=== PATIENT | male | born 1955 | race Caucasian/White ===

== ENCOUNTER 2024-05-23 13:23 | Inpatient (IN) | payer MEDICARE, SELFPAY ==
[2024-05-23] VITALS (9 sets, daily range): BP systolic 122–144; BP diastolic 48–83; PULSE 55–61; RESP 13–19; TEMP 36.6–36.8; O2SAT 92–98; BMI 41.8
--- NOTE | 2024-05-23 13:42 | XR_ITS ---
Examination: CT brain head without contrast. 2-D sagittal coronal reconstructions Date and time of exam:May 23, 2024 1429 hours INDICATIONS: Sudden onset generalized body weakness today and beginning 3 days ago CTDI: vol (mGy):55.3 DLP: (mGycm):1186 Technique: Multiple CT axial sections of the brain have been obtained, 5 mm slice thickness. Contrast has not been administered. 2-D sagittal, coronal reconstructions have been obtained Low dose protocols were performed. One or more of the following dose reduction techniques were used; automated exposure control, adjustment of the mA and/or KV according to patient size, use of iterative reconstruction technique. Findings: No significant ventricular enlargement. 6 mm age-indeterminate infarct in the left basal ganglia, axial image 26 Intra-axial or extra-axial hemorrhage density is not seen. No mass effect or midline shift Basal cisterns are not remarkable. Fourth ventricle is midline. Cranial vault intact. Impression: Negative for acute hemorrhage, mass effect or midline shift 6 mm age-indeterminate infarct in the left basal ganglia, axial image 26 Consider MRI brain without contrast follow-up, stroke protocol
--- NOTE | 2024-05-23 13:42 | EKG_ITS ---
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
--- NOTE | 2024-05-23 13:42 | PD.EDRME ---
Rapid Medical Screening Exam RME Arrival date/time: 05/23/24 13:23 68-year-old male presents the emergency department with complaint of weakness ongoing since Thursday Chief Complaint: Weakness Vital signs: Vital Signs Temperature 98 F 05/23/24 13:38 Pulse Rate 58 L 05/23/24 13:38 Respiratory Rate 18 05/23/24 13:38 Blood Pressure 144/77 H 05/23/24 13:38 Pulse Oximetry (%) 96 05/23/24 13:38 Oxygen Delivery Method Room Air 05/23/24 13:38
[2024-05-23 14:22] LABS: Basophils # (Auto) 0.1 Thou/mm3 (0.0-0.2); Basophils % (Auto) 1 % (0-2.5); Eosinophils # (Auto) 0.5 Thou/mm3 (0.0-0.5); Eosinophils % (Auto) 5 % (0-10); Hemoglobin 13.9 g/dL (13.5-16.0); Immature Granulocytes % (Auto) 0 % (0-0); Immature Granulocytes Auto 0.04 Thou/mm3 (0.00-0.00); Lymphocytes % (Auto) 10 % (10-50); Mean Corpuscular HGB Conc 34.8 g/dl (31.0-37.0); Mean Corpuscular Hemoglobin 29.2 pg (25.0-35.0); Mean Corpuscular Volume 84 fL (80-100); Monocytes # (Auto) 0.8 Thou/mm3 (0.0-0.8); Monocytes % (Auto) 9 % (0-12); Neutrophils # (Auto) 7.4 Thou/mm3 (1.8-7.7); Neutrophils % (Auto) 75 % (37-80); Nucleated Red Blood Cell % 0 /100 WBC (0); Platelet Count 262 Thou/mm3 (140-440); RDW Standard Deviation 42.5 fL (35.1-43.9); Red Blood Count 4.76 Miln/mm3 (4.50-5.90); White Blood Count 9.8 Thou/mm3 (3.8-10.6)
[2024-05-23 14:36] LABS: B-Type Natriuretic Peptide 86 pg/mL (0-100)
[2024-05-23 14:39] LABS: INR 1.1 (0.9-1.3); Partial Thromboplastin Time 26.6 Seconds (22.0-36.0); Prothrombin Time 11.5 Seconds (9.0-12.2)
[2024-05-23 14:46] LABS: Alanine Aminotransferase 31 U/L (10-49); Albumin, Serum 4.2 gm/dL (3.4-4.8); Albumin/Globulin Ratio 1.9 (1.2-2.2); Alkaline Phosphatase 75 U/L (46-116); Anion Gap 7 (7-16); Aspartate Amino Transferase 37 U/L (0-34); BUN/Creatinine Ratio 24 Ratio (12-20); Blood Urea Nitrogen 19 mg/dL (9-23); Calcium 10.3 mg/dL (8.3-10.6); Calcium (Corrected) 10.3 mg/dL (8.5-10.1); Carbon Dioxide 36.2 mMol/L (20.0-31.0); Chloride 101 mMol/L (98-107); Creatinine (Component) 0.8 mg/dL (0.6-1.3); Estimated Creatinine Clearance 110.5 mL/min (>60); Globulin 2.2 gm/dL (2.3-3.5); Glucose 88 mg/dL (74-106); Magnesium 1.8 mg/dL (1.6-2.6); Osmolality,Calculated 288 (275-295); Sodium 144 mMol/L (136-145); Total Protein 6.4 gm/dL (5.7-8.2); Troponin I 0.026 ng/mL (0.0-0.045); eGFR > 60 See Note
[2024-05-23 14:47] LABS: Potassium 2.3 mMol/L (3.4-5.1)
[2024-05-23 15:33] LABS: Collection Type, Urine Clean Catch; Squamous Epithelial Cell,Urine 0 /hpf (0-5)
[2024-05-23 15:45] LABS: Bilirubin,Urine Negative (Negative); Blood,Urine Negative (Negative); Clarity,Urine Clear (Clear/Hazy); Color,Urine Lt-Yellow (Lt Yel-Yel); Glucose, Urine Negative (Negative); Hyaline Casts,Urine < 1 /hpf (0-1); Ketones,Urine Negative (Negative); Leukocyte Esterase,Urine Positive (Negative); Nitrite,Urine Negative (Negative); Protein,Urine Trace (Neg - Trace); RBC,Urine 3 /hpf (0-3); Specific Gravity,Urine 1.022 (1.001-1.035); Urobilinogen,Urine Negative mg/dL (0.0-1.0); WBC,Urine 18 /hpf (0-5)
[2024-05-23 15:52] LABS: Amphetamine/Methamp Scrn,U Negative (Negative); Barbiturate Screen,Urine Negative (Negative); Benzodiazepines Screen,Urine Negative (Negative); Benzoylecgonine Screen, Ur Negative (Negative); Fentanyl Screen,Urine Negative (Negative); Opiate Screen,Urine Negative (Negative); THC Screen,Urine Positive (Negative)
--- NOTE | 2024-05-23 16:40 | PD.EDWEAK ---
ED Weakness RME/HPI General Chief complaint: Weakness Stated complaint: CAM LOWER EXT WEAKNESS SINCE TODAY Arrival date/time: 05/23/24 13:23 RME / HPI RME / HPI Narrative: 05/23/24 13:23 68-year-old male presents the emergency department with complaint of weakness ongoing since Thursday DR. WILDER ZHOU ED EVALUATION 68 year old male with a history of hyperlipidemia and hypothyroidism presents to the emergency department for evaluation of progressive global weakness that began 2 days ago. He reports that upon waking, he performed his usual activities/routine without any issues or change in baseline. However, just before leaving for his niece's birthday republican, he suddenly felt weak and was unable to drive. Since then, he has experienced persistent, bilateral weakness, which has been constant and has not improved. He describes the weakness as global and symmetric, without any specific focal deficits. He also notes a similar but milder episode of weakness that occurred approximately 3 months ago, which resolved within a few hours. There has been no prior history of similar weakness episodes. Denies any fevers, chills, chest pain, cough, shortness of breath, abdominal pain, nausea, vomiting, diarrhea, or urinary symptoms. He also denies any history of stroke or anticoagulant use. Related Data Home Medications ?Medication ?Instructions ?Recorded ?Confirmed atorvastatin 40 mg tablet 40 mg PO QPM 05/25/20 12/24/23 chlorthalidone 25 mg tablet 25 mg PO QDAY 12/24/23 12/24/23 levothyroxine 150 mcg tablet 150 mcg PO QDAY 12/24/23 12/24/23 Previous Rx's ?Medication ?Instructions ?Recorded aspirin 81 mg tablet,delayed 81 mg PO BID 12/29/23 release hydrocodone 5 mg-acetaminophen 325 1 tab PO Q6HR PRN Pain 12/29/23 mg tablet Allergies Allergy/AdvReac Type Severity Reaction Status Date / Time cortisone Allergy Mild Rash Verified 05/23/24 13:26 hydrocodone AdvReac Intermediate MAKES PT Verified 05/23/24 13:26 FEEL JITTERY,UNABLE TO SLEEP Review of Systems Review of Systems Narrative Review of Systems: GEN: No fever, no chills, no weight loss EYES: No discharge, no visual changes, no pain HEENT: No ear pain, no congestion, no sore throat PULM: No shortness of breath, no cough, no congestion CV: No chest pain, no dyspnea on exertion, no palpitations GI: No nausea, no vomiting, no diarrhea, no pain, no constipation : No frequency, no urgency and no dysuria MUSC/SKEL No joint pain, no back pain SKIN: No rash PSYCH: No hallucinations, no depression HEME/LYMPH: No easy bleeding or bruising tendencies NEURO: +global weakness, no headache Past Medical History Past Medical History NEUROLOGIC: Negative Neurological Disorders or Seizures CARDIAC: Positive Cardiac Disorders, Hypercholesterolemia and Edema; Negative Congestive Heart Failure, Cellulitis, Hypertension or Varicose Veins RESPIRATORY: Positive Pneumonia; Negative Chronic Obstructive Pulmonary Disease (COPD) GASTROINTESTINAL: Positive Gastrointestinal Disorders, Gall Bladder Disease (LAP) and Obesity; Negative Hepatitis GENITOURINARY: Negative Genitourinary Disorders or Renal Disease MUSCULOSKELETAL: Positive Musculoskeletal Disorders, Arthritis, Scoliosis (SLIGHT) and Carpal Tunnel Syndrome (CAM) ENT: Positive Deafness ([place] NO HEARING AIDE) ENDOCRINE: Positive Endocrine Disorders and Hypothyroidism (TAKES MED); Negative Diabetes Mellitus Type 1 or Diabetes Mellitus Type 2 HEMATOLOGIC: Negative Blood Disorders OTHER HISTORY: Positive Hospitalization (surgery), Chicken Pox, Measles and Mumps; Negative Autoimmune Disease, Shingles, Falls, Blood Transfusions, Blood Transfusion Reaction, Anesthesia Reactions, Chemotherapy, Radiation Therapy or Cancer Family History FAMILY HISTORY: Positive Family Cardiac Disorders (FATHER ([place]), Family Gastrointestinal Problems (FATHER (ULCER)) and Family Surgery (MOTHER,FATHER,BROTHER,SISTER); Negative Family Psychiatric Problems, Family Respiratory Disorders, Family Cancer or Family Anesthesia Reaction Surgical History SURGICAL: Positive Tonsillectomy and Arthroscopy (Left knee); Negative Cardiac Surgery or Pacemaker Social History SMOKING STATUS: Former smoker ED Exam Narrative Physical exam: GENERAL APPEARANCE: Well hydrated, well nourished, in no acute distress. VITALS: All vitals were reviewed and the pulse ox is 96% on room air which is normal according to my interpretation. HEENT: Normocephalic, atramatic, EOMI, EACs are patent. There is no bulge or retraction. Throat without erythema or exudate. Moist oromucosa. No jaundice NECK: Supple, no JVD or bruits. CARDIOVASCULAR: Heart regular without S3-S4 or murmur. No rubs or gallops. LUNGS/CHEST: Clear to auscultation bilaterally. No rales, rhonchi, or wheezing. Normal inspection. ABDOMEN: Soft, nontender, with normal bowel sounds. No pulsatile masses. No rebound, rigidity, or guarding. No incarcerated hernia. Normal inspection and palpation. EXTREMITIES: Normal inspection and palpation. No edema, clubbing, or cyanosis. Intact CSM SKIN: Warm and dry without rashes. Normal inspection. MUSCULOSKELETAL: Normal inspection. No gross deformity, full ROM all extremities NEURO: Alert and oriented x3. Cranial nerves II through XII grossly intact. There are no other motor or sensory deficits noted. PSYCHIATRIC: Normal mood and affect. No psychosis Course Quality Measures none Orders Category Date Time Status EKG (ED ONLY) *Do not use* NOW Care 05/23/24 13:[address] head/brain wo con Stat Exams 05/23/24 13:42 Completed EKG (ED Only) Stat Exams 05/23/24 13:42 Draft B-Type Natriuretic Peptide Stat Lab 05/23/24 13:59 Completed CBC Stat Lab 05/23/24 13:59 Completed Comprehensive Metabolic Panel Stat Lab 05/23/24 13:59 Completed Drug Screen,Urine Stat Lab 05/23/24 15:16 Completed Magnesium Stat Lab 05/23/24 13:59 Completed Partial Thromboplastin Time Stat Lab 05/23/24 13:59 Completed Prothrombin Time with INR Stat Lab 05/23/24 13:59 Completed Troponin I Stat Lab 05/23/24 13:59 Completed Urinalysis Stat Lab 05/23/24 15:16 Completed POTASSIUM CHL 10 mEq IVPB [Kcl Ivpb] Med 05/23/24 16:24 Active 10 meq in 100 ml IV Q1H Potassium Chloride [K-Dur] Med 05/23/24 16:23 Discontinued 40 meq PO X1 ONE Vital Signs Vital signs: Vital Signs Temperature 98 F 05/23/24 13:38 Pulse Rate 58 L 05/23/24 13:38 Respiratory Rate 18 05/23/24 13:38 Blood Pressure 144/77 H 05/23/24 13:38 Pulse Oximetry (%) 96 05/23/24 13:38 Oxygen Delivery Method Room Air 05/23/24 13:38 Weakness MDM Narrative MDM Narrative:: I, Gail Sykes, am scribing for and in the presence of Dr. Gaitan. CBC is negative. Potassium of 2.3. The rest of CMP is negative. Troponin negative. BNP negative. Toxicology is positive for marijuana. CT brain was reviewed and interpreted by me as follow: Small left hypodense area right at the left basal ganglia may be suggesting of a stroke. No bleed. No mass. No shifting. No swelling. Normal ventricle. Normal skull. Twelve-lead EKG that was done at 1349 and interpreted by me: Sinus bradycardia. Heart rate of 58. Right bundle branch block. No ST elevation or depression. No PVC. No STEMI. Regular rate and rhythm. 4:45 PM, I spoke to and discussed with Dr. day, the neurologist on-call. She agreed to consult on admission. The plan is to do a head MRI tomorrow. 5 PM, I spoke to and discussed with Dr. Snow, resident of Dr. reece, hospitalist on-call. He agreed to admit the patient for further evaluation and treatment. Thank you very much. In the emergency department we are giving the patient IV potassium as well as potassium by mouth. Critical care time is approximately 40 minutes excluding any procedure. The high probability of sudden, clinically significant deterioration in the patient?s condition required the highest level of my preparedness to intervene urgently. The services I provided to this patient were to treat and/or prevent clinically significant deterioration. Services included the following: chart data review, reviewing nursing notes and/or old charts, documentation time, senior internet sales consultant collaboration regarding findings and treatment options, medication orders and management, direct patient care, vital sign assessments and ordering, interpreting and reviewing diagnostic studies and lab tests. Aggregate critical care time includes only time during which I was engaged in work directly related to the patient?s care, as described above, whether at bedside or elsewhere in the Emergency Department. It did not include time spent performing other reported procedures or the services of residents, students, nurses or physician assistants. Patient data External records reviewed:: [facility] [place] (I reviewed ED visit on 01/23/2024) Clinical information provided by:: patient Social determinants that could affect healthcare access:: none Patient has the following chronic illnesses:: Hypothyroidism, hyperlipidemia How is presenting disease/condition affected by chronic disease/condition?: uneffected by Evaluation data The following diagnostics were reviewed and interpreted by me:: lab results and radiology exam(s) Lab and/or radiology exams considered but not ordered:: None Interpretation Summary: Ordering Physician: Caridad RANDHAWA)Johnson NP Date of Service: 05/23/24 Procedure(s): CT head/brain wo con Accession Number(s): [id number] cc: Caridad (CHECKER CASHIER),Johnson SKINNER; River Bo MD; Jamil([facility]),Jai SKINNER~ Examination: CT brain head without contrast. 2-D sagittal coronal reconstructions Date and time of exam:May 23, 2024 1429 hours INDICATIONS: Sudden onset generalized body weakness today and beginning 3 days ago CTDI: vol (mGy):55.3 DLP: (mGycm):1186 Technique: Multiple CT axial sections of the brain have been obtained, 5 mm slice thickness. Contrast has not been administered. 2-D sagittal, coronal reconstructions have been obtained Low dose protocols were performed. One or more of the following dose reduction techniques were used; automated exposure control, adjustment of the mA and/or KV according to patient size, use of iterative reconstruction technique. Findings: No significant ventricular enlargement. 6 mm age-indeterminate infarct in the left basal ganglia, axial image 26 Intra-axial or extra-axial hemorrhage density is not seen. No mass effect or midline shift Basal cisterns are not remarkable. Fourth ventricle is midline. Cranial vault intact. Impression: Negative for acute hemorrhage, mass effect or midline shift 6 mm age-indeterminate infarct in the left basal ganglia, axial image 26 Consider MRI brain without contrast follow-up, stroke protocol Dictated By: River Bo MD Signed By: <Electronically signed by River Bo MD in OV> 05/23/24 1438 Medications / Prescriptions Medications or Prescriptions considered but not ordered:: None Medication administrations:: Medication Administration History Potassium Chloride (Kcl Ivpb) 10 meq in 100 mls @ 100 mls/hr IV Q1H MATTHEW Stop: 05/23/24 20:23 Discontinued Medications Potassium Chloride (Potassium Chloride 20 Meq Tabcr) 40 meq PO X1 ONE Stop: 05/23/24 16:24 See above Consultations Consultation(s) initiated? (list below): Yes Consultation #1 (Physician, Specialty, Details): I spoke with neurologist Dr. Michael. Discussed patients PMHx, HPI, ED course, exam findings, labs, and radiology results. She recommends admission and agrees to consult. Time: 16:40 Consultation #2 (Physician, Specialty, Details): I spoke with resident Dr. Mcduffie working with Dr. Reece. Discussed patients PMHx, HPI, ED course, exam findings, labs, and radiology results. The hospitalist agree to accept the patient for admission. Diagnosis Weakness Differential Diagnosis: anemia, sepsis, dehydration and other (hypokalemia, CVA, TIA ) Most likely diagnosis given after review of the tests above:: Generalized weakness Hypokalemia CVA Admission Indicated Admission indicated?: indicated Admission Request Was there a request for admission?: Yes Admission Attestation Admission request attestation: Discussed case with [] from Hospitalist service regarding admission. Discussed patients ED course, exam findings, labs, and radiology results. The Hospitalist [agrees,declines] to accept the patient for admission. Disposition Plan Disposition Plan: Admit Discharge Plan Plan Patient Disposition: Admit Acute Care w/in Hospital Disposition Comment: Stable for admit Prescriptions/Referrals Prescriptions/Med Rec: No Action atorvastatin 40 mg Tablet 40 mg PO QPM chlorthalidone 25 mg Tablet 25 mg PO QDAY levothyroxine 150 mcg Tablet 150 mcg PO QDAY hydrocodone-acetaminophen 5-325 mg Tablet 1 tab PO Q6HR PRN (Reason: Pain) 0RF aspirin 81 mg Tablet,Delayed Release (Dr/Ec) 81 mg PO BID 0RF Referrals: Jamil([facility]),BRODY Vergara [Primary Care Provider] - In 1 week Problem List Clinical Impression: Generalized weakness, Hypokalemia, CVA (cerebral vascular accident) Patient/Caregiver Discharge Instructions Print Language: Moldovan Stand Alone Forms: Mariah Award Info., Patient Portal Info Letter
--- NOTE | 2024-05-23 17:43 | ESHP_ITS ---
<Statement entered by Lorenzo Reece MD - 06/07/24 09:36> I reviewed above note and agree with findings and plans. I have also personally examined the patient with medicine team and went over assessment and plan with medical team including project internship and resident physician. Documentation for date of: 05/23/24 HPI History of Present Illness History of present illness: 68-year-old male past medical history of hypertension, hyperlipidemia, and hypothyroidism who comes to [facility] on 05/23/2024 in for an evaluation of upper extremity and lower extremity weakness, onset 4 days ago, no associated symptoms of headache, chest pain, syncope, improved with rest. Patient reports that a couple years ago he had felt some weakness in his legs but had resolved on his own. The weakness in his upper and lower extremities has impaired his gait, has trouble standing up and walking. He says that he was about to go to a birthday constitution party and was loading his truck when this happened. He does say that he possibly had a stroke about 35 years ago and is unsure if he was on blood thinners one point. He denies any trauma, falls. He does say that he takes chlorthalidone and Lasix as well for some swelling in his legs. Denies any further symptoms of fatigue nausea, vomiting, headache. Says that his blood pressure runs around 120 systolic at home, does not take CPAP at home or is on oxygen at home. Uses a cane sometimes to walk around at home. ED course: Pt came to the ED with temperature of 98, heart rate of 58, respiratory of 18, blood pressure 144/77, oxygen saturation of 96. He was worked up and was found to have a potassium of 2.3, corrected calcium 10.3, hemoglobin 13.9, troponin negative x 1, UA of 18 WBC. EKG showed sinus bradycardia right bundle branch block, however right bundle branch block seen on previous EKGs. Patient was given oral and IV potassium 40 mill equivalents each. Medicine was consulted for further evaluation of stroke rule out and hypokalemia. PMHx: As above Surgeries: Shoulder surgery, cholecystectomy, total knee replacement left side, carpal tunnel surgery in both hands Allergies: Cortisone Meds: Aspirin, Lipitor, chlorthalidone, Lasix, gabapentin, ibuprofen, Synthroid 150 mcg Social Hx: 84-bqyd-unxs history, however quit in 1983. Smokes pot pretty much every night to help sleep. 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 Lives with his sister in [place]. 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 Review of Systems Review of Systems Narrative Review of Systems: 12 point ROS reviewed and is otherwise negative unless stated in the HPI Exam Vital Signs Temp Pulse Resp BP Pulse Ox O2 Del Method 98 F 58 L 18 144/77 H 96 Room Air 05/23/24 13:38 05/23/24 13:38 05/23/24 13:38 05/23/24 13:38 05/23/24 13:38 05/23/24 13:38 Narrative Exam General: AAOx3, NAD, obese, pleasant male HEENT: Moist mucous membranes, conjunctiva clear, EOMI, PERRLA, Cardiovascular: S1, S2, radial pulses +2 bilat, RRR Pulmonary: CTAB bilat no cough, no wheezing GI: No tenderness to light or deep palpitation, no guarding, rigidity, rebound tenderness or distension Extremities: No presence of trace or pitting edema in lower extremities bilaterally, dorsalis pedis pulses +2 bilaterally Neuro: AAOx3, no focal sensory deficits, reduced range of motion with UE and LE, no nystagmus, no facial droop, no resting tremor, Psych: Good judgement, thought and behavior. Cooperative Results: Labs 05/24/24 04:38 05/24/24 04:38 Labs: Short CBC 05/23/24 Range/Units 13:59 WBC 9.8 (3.8-10.6) Thou/mm3 Hgb 13.9 (13.5-16.0) g/dL Hct 40.0 L (41.0-53.0) % Plt Count 262 (140-440) Thou/mm3 BMP 05/23/24 13:59 Sodium 144 Potassium 2.3 L* Chloride 101 Carbon Dioxide 36.2 H BUN 19 Creatinine 0.8 Glucose 88 Calcium 10.3 Cardiac Enzymes 05/23/24 Range/Units 13:59 Troponin I 0.026 (0.0-0.045) ng/mL Liver Function 05/23/24 Range/Units 13:59 Total Bilirubin 1.0 (0.3-1.2) mg/dL AST 37 H (0-34) U/L ALT 31 (10-49) U/L Alkaline Phosphatase 75 (46-116) U/L Albumin 4.2 (3.4-4.8) gm/dL Urine 05/23/24 Range/Units 15:16 Urine Color Lt-Yellow (Lt Yel-Yel) Urine Clarity Clear (Clear/Hazy) Urine pH 7.0 (5.0-7.0) Ur Specific [place] 1.022 (1.001-1.035) Urine Protein Trace (Neg - Trace) Urine Glucose (UA) Negative (Negative) Quality Measures Quality Measures none Advance care planning discussed with:: patient Medications Home Medications and Allergies Home Medications ?Medication ?Instructions ?Recorded ?Confirmed ?Type atorvastatin 40 mg tablet 40 mg PO QPM 05/25/20 12/24/23 History chlorthalidone 25 mg tablet 25 mg PO QDAY 12/24/23 12/24/23 History levothyroxine 150 mcg tablet 150 mcg PO QDAY 12/24/23 12/24/23 History Allergies Allergy/AdvReac Type Severity Reaction Status Date / Time cortisone Allergy Mild Rash Verified 05/23/24 13:26 hydrocodone AdvReac Intermediate MAKES PT Verified 05/23/24 13:26 FEEL JITTERY,UNABLE TO SLEEP Visit Medications Potassium Chloride (Kcl Ivpb) 10 meq in 100 mls @ 100 mls/hr IV Q1H MATTHEW Stop: 05/23/24 20:23 Discontinued Medications Potassium Chloride (Potassium Chloride 20 Meq Tabcr) 40 meq PO X1 ONE Stop: 05/23/24 16:24 Assessment & Plan Plan Assessment 68-year-old male past medical history of hypertension, hyperlipidemia, and hypothyroidism who comes to [facility] on 05/23/2024 in for an evaluation of stroke rule out and treatment of hypokalemia. #Acute Stroke rule out #Upper extremity bilateral weakness #Lower extremity bilateral weakness #Hx of CVA Patient does have history of stroke, about 35 years ago, takes aspirin as well at home Head CT shows 8 mm age-indeterminate infarct At this time patient is symptomatic and it could be related to a possible infarct, however need to characterize further for infarct Plan: ?*Neuroconsult ?*MRI stroke protocol ?Aspirin 81 ?Lipitor 80 ?Neurochecks every 4 hours ?Allow for permissive hypertension ?Bedrest ?Nurse swallow screen #Hypokalemia #Symptomatic hypokalemia Potassium 2.3 in ED Patient is experiencing muscle weakness, could be related to hypokalemia Likely related to diuretic combo use including chlorthalidone and Lasix Given 40 IV and 40 oral by ED Plan: ?Renal panel at 2300 with magnesium and phosphorus ?Replete as needed ?Potassium and magnesium above 4 and 2 respectively to avoid cardiac arrhythmia #History of hypothyroidism Chronic Plan: ?*TSH ? Resumed home Synthroid 150 mcg #History of hypertension #History of hyperlipidemia Plan: ?Allow for permissive hypertension in case of stroke ?Resumed home Lipitor 80 mg #Health Maintenance Disposition: Telemetry DVT prophylaxis: Heparin GI prophylaxis: None indicated at this time Diet: Cardiac CODE STATUS: Full Patient seen and care discussed with my senior resident, Dr. Brand , and my attending physician, Dr. Chevy Barkley, PGY-1 Senior resident attestation: Patient evaluated and examined at the bedside, plan of care discussed with rest of the team including my attending physician, except as noted. Sunday PGY2
--- NOTE | 2024-05-23 17:59 | ECHO_ITS ---
Transthoracic Echo Report Ht (in): 68 Wt (lb): 275 Exam Location: Portable Status: Emergency Diversity Manager: Imelda Pichardo Indications: Procedure Performed: BP: 108 / 62 HR: 56 Rhythm: Sinus Technical Quality: Fair Contrast: Agitated Saline Total Dose (mL): MEASUREMENTS (Male / Female) Normal Values 2D ECHO LV Diastolic Diameter PLAX 4.7 cm 4.2 - 5.9 / 3.9 - 5.3 cm LV Systolic Diameter PLAX 3.2 cm IVS Diastolic Thickness 0.9 cm 0.6 - 1.0 / 0.6 - 0.9 cm LVPW Diastolic Thickness 1.1 cm 0.6 - 1.0 / 0.6 - 0.9 cm LV Relative Wall Thickness 0.4 LVOT Diameter 2.2 cm LA Volume Index 23.6 cm?/m? 16 - 28 cm?/m? Ascending Aorta Diameter 3.2 cm M-MODE Aortic Root Diameter MM 3.0 cm LA Systolic Diameter MM 3.7 cm LA Ao Ratio MM 1.2 AV Cusp Separation MM 1.6 cm DOPPLER AV Peak Velocity 280.0 cm/s AV Peak Gradient 31.4 mmHg AV Mean Gradient 18.2 mmHg AV Velocity Time Integral 69.0 cm LVOT Peak Velocity 97.5 cm/s LVOT Peak Gradient 3.8 mmHg LVOT Velocity Time Integral 25.8 cm LVOT Cardiac Index 2191.1 cm?/min?m? AV Area Cont Eq vti 1.4 cm? AV Area Cont Eq pk 1.3 cm? MV Peak Velocity 106.0 cm/s MV Peak Gradient 4.5 mmHg MV Mean Velocity 66.6 cm/s MV Mean Gradient 2.0 mmHg MV Area PHT 2.4 cm? Mitral E Point Velocity 73.2 cm/s Mitral A Point Velocity 95.6 cm/s Mitral E to A Ratio 0.8 LV E' Lateral Velocity 9.3 cm/s Mitral E to LV E' Lateral Ratio 7.9 LV E' Septal Velocity 6.4 cm/s Mitral E to LV E' Septal Ratio 11.4 FINDINGS Left Ventricle Normal left ventricular size, wall thickness, systolic function with no obvious regional wall motion abnormalities. The ejection fraction is visually estimated at 55-60%. Right Ventricle The right ventricle is normal in size and systolic function. Left Atrium The left atrium is normal by two-dimensional, color flow and Doppler imaging with no structural abnormalities, no thrombus formation present. Right Atrium The right atrium is normal by two-dimensional imaging, color flow and Doppler imaging with no struct ural abnormalities, no thrombus formation present. Atrial Septum The interatrial septum appears normal with no evidence of a shunt. Aorta The aorta is normal by two-dimensional, color flow and Doppler interrogation. Mitral Valve The mitral valve is normal by two-dimensional, color flow and Doppler interrogation. There is trace mitral valve regurgitation. Aortic Valve The aortic valve is trileaflet. Mild to moderate stenosis, mean gradient 19mmHg, vmax 2.9m/s. There is mild aortic valve regurgitation. Tricuspid Valve The tricuspid valve is normal by two-dimensional, color flow and Doppler interrogation. There is tra ce tricuspid valve regurgitation. Pulmonic Valve There is no significant pulmonic valve regurgitation. Vessels The pulmonary artery appears normal. The inferior vena cava pulmonary and hepatic veins appear thania l. Pericardium The pericardium is normal by two-dimensional imaging. There is no significant pericardial effusion. CONCLUSIONS Indication: Stroke Negative bubble study. TTE is suboptimal to rule out PFO or ASD. Consider SOMMER if high clinical suspi cion. Normal LV size and function. Stage I diastolic dysfunction. Estimated EF 55-60% Normal RV size and function. Trace TR Moderate aortic stenosis, mean gradient 20 mm Hg, vmax 2.9 m/s Trace MR. Mild AI. Jesus Ortiz (Electronically Signed) Final Date: 25 May 2024 18:40
--- NOTE | 2024-05-23 18:00 | PC.NURSE ---
Pt. here from home to room 1, pt. here via wheelchair pt. states his arms and legs were getting weaker so he called his Doctor and his Doctor advised him to come in to ER. 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 Pt. denies any dizziness, nausea or vomiting. No s/s of distress.
[2024-05-23] MEDS: POTASSIUM CHLORIDE 20 mEq TABCR 40 MEQ PO (18:26)
[2024-05-23] MEDS: ASPIRIN EC 81 MG TABEC PO (18:27)
[2024-05-23] MEDS: POTASSIUM CHL 10 mEq IVPB 10 MEQ/100 ML BAG 100 MEQ IV ×4 (18:44→21:58)
[2024-05-23] MEDS: GABAPENTIN 300 MG CAPSULE PO (20:56)
[2024-05-23] MEDS: HYDROcodone/APAP 5/325 TABLET 1 TAB PO (21:13)
--- NOTE | 2024-05-23 21:31 | PC.NURSE ---
Pt complaining of back pain states he has chronic back pain- Resident made aware new orders placed and implemented
[2024-05-23 23:34] LABS: Albumin, Serum 3.7 gm/dL (3.4-4.8); Anion Gap 5 (7-16); BUN/Creatinine Ratio 20 Ratio (12-20); Blood Urea Nitrogen 16 mg/dL (9-23); Calcium 9.7 mg/dL (8.3-10.6); Calcium (Corrected) 9.9 mg/dL (8.5-10.1); Chloride 102 mMol/L (98-107); Creatinine (Component) 0.8 mg/dL (0.6-1.3); Estimated Creatinine Clearance 110.5 mL/min (>60); Glucose 111 mg/dL (74-106); Magnesium 1.6 mg/dL (1.6-2.6); Osmolality,Calculated 285 (275-295); Phosphorous 3.2 mg/dL (2.4-5.1); Sodium 142 mMol/L (136-145); eGFR > 60 See Note
[2024-05-23 23:35] LABS: Potassium 2.6 mMol/L (3.4-5.1)
[2024-05-24] VITALS (17 sets, daily range): BP systolic 100–136; BP diastolic 51–83; PULSE 53–70; RESP 11–19; TEMP 36.1–37; O2SAT 94–98
--- NOTE | 2024-05-24 | XR_ITS ---
Examinations: MRI Brain without intravenous contrast. MRA brain without intravenous contrast. MRA carotids without intravenous contrast 3-D vascular reconstructions Date and time of exam: May 24, 2024 0936 hours INDICATIONS: Stroke symptoms, sudden onset generalized weakness beginning May 20, 2024, 6 mm age-indeterminate infarct left basal ganglia on CT brain scan May 23, 2024 Technique: Multiple axial and sagittal images of the brain have been obtained MRA brain carotid images without contrast obtained, including 3-D postprocessing, vascular maximum intensity projection images Findings: [place] is not enlarged. The optic chiasm and infundibular stalk are not remarkable. Prepontine and interpeduncular cisterns are not enlarged. No localized enlargement of the medulla or emiliano. Fourth ventricle and cerebellar tonsils normal in position. Subacute hemorrhage is not seen. Fourth ventricle is midline. Mass in the cerebellopontine angle region is not evident. 7th and 8th nerve complexes exhibits symmetry. Globes are symmetrical with no retro-orbital mass. Increased white matter signal mild Diffusion-weighted images demonstrate no focus of restricted diffusion Mass-effect upon the ventricular system is not identified. MRA carotid images degraded by patient motion. MRA brain images no large vessel occlusions Impression: Negative for acute hemorrhage mass effect or midline shift No acute infarct Mild chronic microvascular white matter change No cerebral large vessel occlusions
[2024-05-24] MEDS: POTASSIUM CHLORIDE 20 mEq TABCR 40 MEQ PO ×2 (00:49→21:27)
[2024-05-24] MEDS: POTASSIUM CHL 10 mEq IVPB 10 MEQ/100 ML BAG 100 MEQ IV ×8 (00:51→13:30)
[2024-05-24] MEDS: HYDROcodone/APAP 5/325 TABLET 1 TAB PO (03:08)
[2024-05-24 05:18] LABS: Basophils % (Auto) 1 % (0-2.5); Eosinophils # (Auto) 0.5 Thou/mm3 (0.0-0.5); Eosinophils % (Auto) 5 % (0-10); Hematocrit 38.3 % (41.0-53.0); Hemoglobin 13.4 g/dL (13.5-16.0); Immature Granulocytes % (Auto) 1 % (0-0); Immature Granulocytes Auto 0.05 Thou/mm3 (0.00-0.00); Lymphocytes # (Auto) 1.1 Thou/mm3 (1.0-4.8); Lymphocytes % (Auto) 13 % (10-50); Mean Corpuscular Hemoglobin 29.1 pg (25.0-35.0); Mean Corpuscular Volume 83 fL (80-100); Monocytes # (Auto) 0.6 Thou/mm3 (0.0-0.8); Monocytes % (Auto) 8 % (0-12); Neutrophils # (Auto) 6.2 Thou/mm3 (1.8-7.7); Neutrophils % (Auto) 73 % (37-80); Nucleated Red Blood Cell % 0 /100 WBC (0); Platelet Count 220 Thou/mm3 (140-440); RDW Standard Deviation 41.8 fL (35.1-43.9); Red Blood Count 4.61 Miln/mm3 (4.50-5.90); White Blood Count 8.5 Thou/mm3 (3.8-10.6)
[2024-05-24 05:40] LABS: INR 1.1 (0.9-1.3); Partial Thromboplastin Time 23.1 Seconds (22.0-36.0); Prothrombin Time 11.5 Seconds (9.0-12.2)
[2024-05-24 06:01] LABS: Alanine Aminotransferase 30 U/L (10-49); Albumin/Globulin Ratio 2.2 (1.2-2.2); Alkaline Phosphatase 68 U/L (46-116); Anion Gap 6 (7-16); Aspartate Amino Transferase 48 U/L (0-34); BUN/Creatinine Ratio 23 Ratio (12-20); Bilirubin,Total 1.1 mg/dL (0.3-1.2); Blood Urea Nitrogen 16 mg/dL (9-23); Calcium 9.2 mg/dL (8.3-10.6); Calcium (Corrected) 9.2 mg/dL (8.5-10.1); Carbon Dioxide 34.4 mMol/L (20.0-31.0); Chloride 102 mMol/L (98-107); Cholesterol 99 mg/dL (132-200); Creatinine (Component) 0.7 mg/dL (0.6-1.3); Estimated Creatinine Clearance 126.3 mL/min (>60); Globulin 1.8 gm/dL (2.3-3.5); Glucose 95 mg/dL (74-106); HDL Cholesterol 33 mg/dL (40-60); LDL Cholesterol,Calculated 38 mg/dL (0-130); Magnesium 1.8 mg/dL (1.6-2.6); Osmolality,Calculated 284 (275-295); Phosphorous 3.8 mg/dL (2.4-5.1); Potassium 2.8 mMol/L (3.4-5.1); Sodium 142 mMol/L (136-145); Thyroid Stimulating Hormone 4.28 uIU/mL (0.55-4.78); Total Protein 5.8 gm/dL (5.7-8.2); Triglycerides 138 mg/dL (30-150); eGFR > 60 See Note
[2024-05-24] MEDS: LEVOTHYROXINE SODIUM 125 MCG, LEVOTHYROXINE SODIUM 25 MCG 150 MCG PO (06:28)
--- NOTE | 2024-05-24 07:55 | PC.CC ---
Pt Ze Menon is a 68 yr old male admitted to hospitalist services for acute stroke r/o, upper and lower extremity weakness. [employer] met with pt at bedside to complete initial assessment. At time of encounter pt is noted to be alert and oriented to person, place and situation. Pt expressed understanding admission orders. Pt able to confirm all demographic information. Pt is from home [facility]. where he lives with his sister Minna Menon [phone]. Pt designates his sister as surrogate DM. Pt reports he is retired. Pt reports at baseline he uses a can to support ambulation. Pt reports being independent with completion of ADLs. Pt does not require supplemental O2 in the home. Pt is not diabetic and is not on dialysis. Pt followed by [facility] for primary care. At time of D/c pt reports that he will return home with family providing transport.
[2024-05-24] MEDS: ENOXAPARIN SOD INJ 40 MG/0.4 ML SYRINGE SC (09:29)
[2024-05-24] MEDS: ASPIRIN EC 81 MG TABEC PO (09:29)
[2024-05-24] MEDS: GABAPENTIN 300 MG CAPSULE PO ×2 (09:30→21:27)
[2024-05-24] MEDS: POTASSIUM CHLORIDE 20 mEq TABCR PO (09:33)
--- NOTE | 2024-05-24 09:57 | ESPR_ITS ---
<Statement entered by Lorenzo Reece MD - 06/07/24 09:36> I reviewed above note and agree with findings and plans. I have also personally examined the patient with medicine team and went over assessment and plan with medical team including international trade manager and resident physician. <Statement entered by Loren Mcduffie MD - 05/24/24 16:38> Patient was seen and examined at bedside. Patient was able to ambulate and he reported significant improvement of his generalized weakness. MRI came back negative for any acute stroke, his serum potassium is improving and now it is 2.8. Will continue giving the patient potassium and repeat potassium at 3 PM and will adjust potassium repletion accordingly. Given the patient clinical improvement with the potassium repletion we believe that his generalized weakness secondary to electrolyte abnormalities. Will instruct the patient to hold his Lasix and chlorthalidone on discharge or will add the patient potassium supplements with Lasix. Was still pending echo and neurorecommendations. If normal and patient was cleared from the neuro standpoint patient will be discharged tomorrow after PT evaluation. - Patient's plan and care discussed with my attending, Dr. Chevy Mcduffie MD Internal Medicine PGY-2 Documentation for date of: 05/24/24 Subjective Subjective Interval history: Pt examined at bedside today. No acute overnight events. Says he is doing much better, says his UE and LE weakness has improved. Says he has been walking around. Had a bowel movement. Is not experiencing any fatigue, headache or worsening sx at this time. Is wondering when he can leave. No new complaints at this time Exam Vital Signs Temp Pulse Resp BP Pulse Ox O2 Del Method O2 Flow Rate 98.3 F 70 19 121/83 96 Room Air 2 05/24/24 09:50 05/24/24 09:50 05/24/24 09:50 05/24/24 09:50 05/24/24 09:50 05/24/24 09:50 05/24/24 02:43 Narrative Exam General: AAOx3, NAD, obese, pleasant male HEENT: Moist mucous membranes, conjunctiva clear, EOMI, PERRLA, Cardiovascular: S1, S2, radial pulses +2 bilat, RRR Pulmonary: CTAB bilat no cough, no wheezing GI: No tenderness to light or deep palpitation, no guarding, rigidity, rebound tenderness or distension Extremities: No presence of trace or pitting edema in lower extremities bilaterally, dorsalis pedis pulses +2 bilaterally Skin: Some venous stasis in LE bilat Neuro: AAOx3, no focal sensory deficits, reduced range of motion with UE and LE but has improved since yesterday , no nystagmus, no facial droop, no resting tremor, Psych: Good judgement, thought and behavior. Cooperative Objective Labs 05/24/24 04:38 05/24/24 14:05 Labs: Laboratory Results - last 24 hr 05/23/24 05/23/24 05/23/24 13:59 15:16 23:11 WBC 9.8 RBC 4.76 Hgb 13.9 Hct 40.0 L MCV 84 MCH 29.2 MCHC 34.8 RDW Std Deviation 42.5 Plt Count 262 Neut % (Auto) 75 Lymph % (Auto) 10 [place] % (Auto) 9 Eos % (Auto) 5 Baso % (Auto) 1 Neut # (Auto) 7.4 Lymph # (Auto) 1.0 [place] # (Auto) 0.8 Eos # (Auto) 0.5 Baso # (Auto) 0.1 Immature Gran # (Auto) 0.04 H Absolute Nucleated RBC 0.00 Immature Gran % 0 Nucleated RBC % 0 PT 11.5 INR 1.1 APTT 26.6 Sodium 144 142 Potassium 2.3 L* 2.6 L* Chloride 101 102 Carbon Dioxide 36.2 H 35.0 H Anion Gap 7 5 L BUN 19 16 Creatinine 0.8 0.8 Estim Creat Clear Calc 110.5 110.5 eGFR > 60 > 60 BUN/Creatinine Ratio 24 H 20 Glucose 88 111 H Calculated Osmolality 288 285 Calcium 10.3 9.7 Corrected Calcium 10.3 H 9.9 Phosphorus 3.2 Magnesium 1.8 1.6 Total Bilirubin 1.0 AST 37 H ALT 31 Alkaline Phosphatase 75 Troponin I 0.026 B-Natriuretic Peptide 86 Total Protein 6.4 Albumin 4.2 3.7 D Globulin 2.2 L Albumin/Globulin Ratio 1.9 Triglycerides Cholesterol LDL Cholesterol, Calc HDL Cholesterol Cholesterol/HDL Ratio TSH Ur Collection Type Clean Catch Urine Color Lt-Yellow Urine Clarity Clear Urine pH 7.0 Ur Specific [place] 1.022 Urine Protein Trace Urine Glucose (UA) Negative Urine Ketones Negative Urine Blood Negative Urine Nitrite Negative Urine Bilirubin Negative Urine Urobilinogen (Auto) Negative Ur Leukocyte Esterase Positive Urine RBC 3 Urine WBC 18 H Ur Squamous Epith Cells 0 Urine Bacteria None Hyaline Casts < 1 Urine Opiates Screen Negative Urine Fentanyl Screen Negative Ur Barbiturates Screen Negative U Amphetamin/Meth Scrn Negative U Benzodiazepines Scrn Negative U Cocaine Metab Screen Negative U Marijuana (THC) Screen Positive A 05/24/24 04:38 WBC 8.5 RBC 4.61 Hgb 13.4 L Hct 38.3 L MCV 83 MCH 29.1 MCHC 35.0 RDW Std Deviation 41.8 Plt Count 220 D Neut % (Auto) 73 Lymph % (Auto) 13 [place] % (Auto) 8 Eos % (Auto) 5 Baso % (Auto) 1 Neut # (Auto) 6.2 Lymph # (Auto) 1.1 [place] # (Auto) 0.6 Eos # (Auto) 0.5 Baso # (Auto) 0.0 Immature Gran # (Auto) 0.05 H Absolute Nucleated RBC 0.00 Immature Gran % 1 H Nucleated RBC % 0 PT 11.5 INR 1.1 APTT 23.1 Sodium 142 Potassium 2.8 L Chloride 102 Carbon Dioxide 34.4 H Anion Gap 6 L BUN 16 Creatinine 0.7 Estim Creat Clear Calc 126.3 eGFR > 60 BUN/Creatinine Ratio 23 H Glucose 95 Calculated Osmolality 284 Calcium 9.2 Corrected Calcium 9.2 Phosphorus 3.8 Magnesium 1.8 Total Bilirubin 1.1 AST 48 H ALT 30 Alkaline Phosphatase 68 Troponin I B-Natriuretic Peptide Total Protein 5.8 Albumin 4.0 Globulin 1.8 L Albumin/Globulin Ratio 2.2 Triglycerides 138 Cholesterol 99 L LDL Cholesterol, Calc 38 HDL Cholesterol 33 L Cholesterol/HDL Ratio 3.0 L TSH 4.28 Ur Collection Type Urine Color Urine Clarity Urine pH Ur Specific [place] Urine Protein Urine Glucose (UA) Urine Ketones Urine Blood Urine Nitrite Urine Bilirubin Urine Urobilinogen (Auto) Ur Leukocyte Esterase Urine RBC Urine WBC Ur Squamous Epith Cells Urine Bacteria Hyaline Casts Urine Opiates Screen Urine Fentanyl Screen Ur Barbiturates Screen U Amphetamin/Meth Scrn U Benzodiazepines Scrn U Cocaine Metab Screen U Marijuana (THC) Screen Quality Measures Quality Measures none Advance care planning discussed with:: patient Assessment & Plan Assessment Current Active Medications: Generic Name Dose Route Start Last Admin Trade Name Freq PRN Reason Stop Dose Admin Acetaminophen 650 mg 05/23/24 17:43 Acetaminophen 325 Mg Tablet PO 06/22/24 17:42 Q6H PRN Fever >101.5 or pain 1-3 Hydrocodone Bitart/Acetaminophen 1 tab 05/23/24 21:01 05/24/24 03:08 Hydrocodone/Apap 5/325 Tablet PO 05/28/24 21:00 1 tab Q6HR PRN Administration Pain 4- 10 Aspirin 81 mg 05/24/24 09:00 05/24/24 09:29 Aspirin Ec 81 Mg Tabec PO 06/23/24 08:59 81 mg QDAY MATTHEW Administration Atorvastatin Calcium 80 mg 05/24/24 09:00 Atorvastatin Calcium 20 Mg Tablet PO 06/23/24 08:59 QDAY MATTHEW Enoxaparin Sodium 40 mg 05/24/24 09:00 05/24/24 09:29 Enoxaparin Sod Inj 40 Mg/0.4 Ml Syringe SC 06/07/24 08:59 40 mg QDAY MATTHEW Administration Gabapentin 300 mg 05/23/24 21:00 05/24/24 09:30 Gabapentin 300 Mg Capsule PO 06/22/24 20:59 300 mg BID MATTHEW Administration Potassium Chloride 10 meq in 100 mls @ 100 mls/hr 05/24/24 09:00 05/24/24 09:30 Kcl Ivpb IV 05/24/24 12:59 100 mls/hr Q1H MATTHEW Administration Levothyroxine Sodium 125 mcg/ 150 mcg 05/24/24 06:00 05/24/24 06:28 Levothyroxine Sodium 25 mcg PO 06/23/24 05:59 150 mcg ACBR MATTHEW Administration Ondansetron HCl 4 mg 05/23/24 17:43 Ondansetron Inj 2 Mg/Ml Inj 2 Ml IV 06/22/24 17:42 Q6H PRN NAUSEA OR VOMITING Protocol Plan Plan Assessment 68-year-old male past medical history of hypertension, hyperlipidemia, and hypothyroidism who comes to [facility] on 05/23/2024 in for an evaluation of stroke rule out and treatment of hypokalemia. #Acute Stroke rule out #Upper extremity bilateral weakness #Lower extremity bilateral weakness #Hx of CVA Patient does have history of stroke, about 35 years ago, takes aspirin as well at home Head CT shows 8 mm age-indeterminate infarct At this time patient is symptomatic and it could be related to a possible infarct, however need to characterize further for infarct MRI negative for acute hemorrhage, mass effect, midline shift, acute infarct, no cerebral large vessel occlusion Patient does not have focal weakness that can correlate with 1 part of the body with respect to a specific vasculature of the brain, bilateral weakness most likely related to hypokalemia However will need to follow-up with Echo Plan: ?Neurology consulted, appreciated recs ?F/u w/ Echo ?Continue aspirin 81 ?Continue Lipitor 80 ?Neurochecks every 4 hours ?Allow for permissive hypertension #Hypokalemia, improving #Symptomatic hypokalemia, improving Potassium 2.3 in ED Patient is experiencing muscle weakness, could be related to hypokalemia Likely related to diuretic combo use including chlorthalidone and Lasix Plan: ?Renal panel at 1800 with magnesium and phosphorus ?Replete as needed ?Potassium and magnesium above 4 and 2 respectively to avoid cardiac arrhythmia #History of hypothyroidism Chronic TSH ~4.5 Plan: ? Continue home Synthroid 150 mcg #History of hypertension #History of hyperlipidemia Plan: ?Will hold on resuming blood pressure medicines ?Continue Lipitor 80 mg #Health Maintenance Disposition: Telemetry DVT prophylaxis: Heparin GI prophylaxis: None indicated at this time Diet: Cardiac CODE STATUS: Full Patient seen and care discussed with my senior resident, Dr. Mcduffie, and my attending physician, Dr. Chevy Barkley, PGY-1
[2024-05-24] MEDS: ATORVASTATIN CALCIUM 20 MG TABLET 80 MG PO (10:22)
--- NOTE | 2024-05-24 11:15 | PD.RESPRO ---
Documentation for date of: 05/24/24 Subjective Subjective Interval history: patient examined bedside this morning Exam Vital Signs Temp Pulse Resp BP Pulse Ox O2 Del Method O2 Flow Rate 98.5 F 60 16 111/75 96 Room Air 2 05/24/24 11:00 05/24/24 11:00 05/24/24 11:00 05/24/24 11:00 05/24/24 11:00 05/24/24 11:00 05/24/24 02:43 Objective Labs 05/24/24 04:38 05/24/24 04:38 Labs: Laboratory Results - last 24 hr 05/23/24 05/23/24 05/23/24 13:59 15:16 23:11 WBC 9.8 RBC 4.76 Hgb 13.9 Hct 40.0 L MCV 84 MCH 29.2 MCHC 34.8 RDW Std Deviation 42.5 Plt Count 262 Neut % (Auto) 75 Lymph % (Auto) 10 [place] % (Auto) 9 Eos % (Auto) 5 Baso % (Auto) 1 Neut # (Auto) 7.4 Lymph # (Auto) 1.0 [place] # (Auto) 0.8 Eos # (Auto) 0.5 Baso # (Auto) 0.1 Immature Gran # (Auto) 0.04 H Absolute Nucleated RBC 0.00 Immature Gran % 0 Nucleated RBC % 0 PT 11.5 INR 1.1 APTT 26.6 Sodium 144 142 Potassium 2.3 L* 2.6 L* Chloride 101 102 Carbon Dioxide 36.2 H 35.0 H Anion Gap 7 5 L BUN 19 16 Creatinine 0.8 0.8 Estim Creat Clear Calc 110.5 110.5 eGFR > 60 > 60 BUN/Creatinine Ratio 24 H 20 Glucose 88 111 H Calculated Osmolality 288 285 Calcium 10.3 9.7 Corrected Calcium 10.3 H 9.9 Phosphorus 3.2 Magnesium 1.8 1.6 Total Bilirubin 1.0 AST 37 H ALT 31 Alkaline Phosphatase 75 Troponin I 0.026 B-Natriuretic Peptide 86 Total Protein 6.4 Albumin 4.2 3.7 D Globulin 2.2 L Albumin/Globulin Ratio 1.9 Triglycerides Cholesterol LDL Cholesterol, Calc HDL Cholesterol Cholesterol/HDL Ratio TSH Ur Collection Type Clean Catch Urine Color Lt-Yellow Urine Clarity Clear Urine pH 7.0 Ur Specific [place] 1.022 Urine Protein Trace Urine Glucose (UA) Negative Urine Ketones Negative Urine Blood Negative Urine Nitrite Negative Urine Bilirubin Negative Urine Urobilinogen (Auto) Negative Ur Leukocyte Esterase Positive Urine RBC 3 Urine WBC 18 H Ur Squamous Epith Cells 0 Urine Bacteria None Hyaline Casts < 1 Urine Opiates Screen Negative Urine Fentanyl Screen Negative Ur Barbiturates Screen Negative U Amphetamin/Meth Scrn Negative U Benzodiazepines Scrn Negative U Cocaine Metab Screen Negative U Marijuana (THC) Screen Positive A 05/24/24 04:38 WBC 8.5 RBC 4.61 Hgb 13.4 L Hct 38.3 L MCV 83 MCH 29.1 MCHC 35.0 RDW Std Deviation 41.8 Plt Count 220 D Neut % (Auto) 73 Lymph % (Auto) 13 [place] % (Auto) 8 Eos % (Auto) 5 Baso % (Auto) 1 Neut # (Auto) 6.2 Lymph # (Auto) 1.1 [place] # (Auto) 0.6 Eos # (Auto) 0.5 Baso # (Auto) 0.0 Immature Gran # (Auto) 0.05 H Absolute Nucleated RBC 0.00 Immature Gran % 1 H Nucleated RBC % 0 PT 11.5 INR 1.1 APTT 23.1 Sodium 142 Potassium 2.8 L Chloride 102 Carbon Dioxide 34.4 H Anion Gap 6 L BUN 16 Creatinine 0.7 Estim Creat Clear Calc 126.3 eGFR > 60 BUN/Creatinine Ratio 23 H Glucose 95 Calculated Osmolality 284 Calcium 9.2 Corrected Calcium 9.2 Phosphorus 3.8 Magnesium 1.8 Total Bilirubin 1.1 AST 48 H ALT 30 Alkaline Phosphatase 68 Troponin I B-Natriuretic Peptide Total Protein 5.8 Albumin 4.0 Globulin 1.8 L Albumin/Globulin Ratio 2.2 Triglycerides 138 Cholesterol 99 L LDL Cholesterol, Calc 38 HDL Cholesterol 33 L Cholesterol/HDL Ratio 3.0 L TSH 4.28 Ur Collection Type Urine Color Urine Clarity Urine pH Ur Specific [place] Urine Protein Urine Glucose (UA) Urine Ketones Urine Blood Urine Nitrite Urine Bilirubin Urine Urobilinogen (Auto) Ur Leukocyte Esterase Urine RBC Urine WBC Ur Squamous Epith Cells Urine Bacteria Hyaline Casts Urine Opiates Screen Urine Fentanyl Screen Ur Barbiturates Screen U Amphetamin/Meth Scrn U Benzodiazepines Scrn U Cocaine Metab Screen U Marijuana (THC) Screen Quality Measures Quality Measures none Assessment & Plan Assessment Current Active Medications: Generic Name Dose Route Start Last Admin Trade Name Freq PRN Reason Stop Dose Admin Acetaminophen 650 mg 05/23/24 17:43 Acetaminophen 325 Mg Tablet PO 06/22/24 17:42 Q6H PRN Fever >101.5 or pain 1-3 Hydrocodone Bitart/Acetaminophen 1 tab 05/23/24 21:01 05/24/24 03:08 Hydrocodone/Apap 5/325 Tablet PO 05/28/24 21:00 1 tab Q6HR PRN Administration Pain 4- 10 Aspirin 81 mg 05/24/24 09:00 05/24/24 09:29 Aspirin Ec 81 Mg Tabec PO 06/23/24 08:59 81 mg QDAY MATTHEW Administration Atorvastatin Calcium 80 mg 05/24/24 09:00 05/24/24 10:22 Atorvastatin Calcium 20 Mg Tablet PO 06/23/24 08:59 80 mg QDAY MATTHEW Administration Enoxaparin Sodium 40 mg 05/24/24 09:00 05/24/24 09:29 Enoxaparin Sod Inj 40 Mg/0.4 Ml Syringe SC 06/07/24 08:59 40 mg QDAY MATTHEW Administration Gabapentin 300 mg 05/23/24 21:00 05/24/24 09:30 Gabapentin 300 Mg Capsule PO 06/22/24 20:59 300 mg BID MATTHEW Administration Potassium Chloride 10 meq in 100 mls @ 100 mls/hr 05/24/24 09:00 05/24/24 10:30 Kcl Ivpb IV 05/24/24 12:59 100 mls/hr Q1H MATTHEW Administration Levothyroxine Sodium 125 mcg/ 150 mcg 05/24/24 06:00 05/24/24 06:28 Levothyroxine Sodium 25 mcg PO 06/23/24 05:59 150 mcg ACBR MATTHEW Administration Ondansetron HCl 4 mg 05/23/24 17:43 Ondansetron Inj 2 Mg/Ml Inj 2 Ml IV 06/22/24 17:42 Q6H PRN NAUSEA OR VOMITING Protocol
--- NOTE | 2024-05-24 11:16 | PD.RESCONSUL ---
HPI Data of Consult Requesting Physician: Lorenzo Reece MD Admitting Provider: Lorenzo Reece MD Attending Provider: Lorenzo Reece MD Primary Care Provider: Jai Negron([facility]), HOUSING SPECIALIST Consult Narrative History of present illness: 68-year-old male with PMH of HTN,HLD, hypothyridism, odteoarthritis,carpel tunnel who comes to [facility] on 05/23/2024 in for an evaluation of upper extremity and lower extremity weakness, since last thursday . Denies any associated symptoms of chest pain, headache,sob , syncope . He was about to go to a birthday green party and load his trunk and his weakness started. ED vitals temperature of 98, heart rate of 58, respiratory of 18, blood pressure 144/77, oxygen saturation of 96. ED labs potassium of 2.3, corrected calcium 10.3, hemoglobin 13.9, troponin negative x 1, UA of 18 WBC. EKG showed sinus bradycardia right bundle branch block, however right bundle branch block seen on previous EKGs. Patient was given oral and IV potassium 40 mill equivalents each. Neurology consulted for weakness. NIHSS score 0. PMHx: As above Surgeries: Shoulder surgery, cholecystectomy, total knee replacement left side, carpal tunnel surgery in both hands Allergies: Cortisone Meds: Aspirin, Lipitor, chlorthalidone, Lasix, gabapentin, ibuprofen, Synthroid 150 mcg Social Hx: [id number] history, however quit in 1983. cc:: cc: Lorenzo Reece MD Review of Systems Review of Systems Systems Reviewed: All systems reviewed, normal except as documented Exam Vital Signs Temp Pulse Resp BP Pulse Ox O2 Del Method O2 Flow Rate 98.5 F 60 16 111/75 96 Room Air 2 05/24/24 11:00 05/24/24 11:00 05/24/24 11:00 05/24/24 11:00 05/24/24 11:00 05/24/24 11:00 05/24/24 02:43 Narrative Exam GENERAL: Comfortable adult seen resting comfortably in hospital bed, no acute distress VITALS: All vitals were reviewed and the pulse ox is 98% on room air HEENT: Normocephalic, atraumatic. Pupils are equal and reactive. Oral mucosa is moist. NECK: Supple, nontender, no JVD CHEST: Symmetrical, atraumatic and with equal expansion ,Nontender on palpation CARDIOVASCULAR: Heart regular rhythm & rate. S1/S2. no murmur or gallop rub or extra beats. LUNGS: Clear to auscultation bilaterally with symmetrical chest rise. No laboring tachypnea or wheezing. No intercostal subcostal retraction. No rales and no rhonchi. ABDOMEN: Soft, flat, nontender to palpation, no guarding or rebound tenderness. Active and normal bowel sounds. EXTREMITIES:Moves all 4 extremities,No B/L LE edema. SKIN: Warm and dry, no jaundice , readness in b/l legs NEURO: Patient is AO x 3, Cranial nerves II through XII grossly intact. There is no focal neurologic deficits noted. PSYCHIATRIC: Patient is in normal mood, cooperative, no SI or HI or hallucinations. Results Labs 05/24/24 04:38 05/24/24 19:09 Labs: Short CBC 05/23/24 05/24/24 Range/Units 13:59 04:38 WBC 9.8 8.5 (3.8-10.6) Thou/mm3 Hgb 13.9 13.4 L (13.5-16.0) g/dL Hct 40.0 L 38.3 L (41.0-53.0) % Plt Count 262 220 D (140-440) Thou/mm3 BMP 05/23/24 05/23/24 05/24/24 13:59 23:11 04:38 Sodium 144 142 142 Potassium 2.3 L* 2.6 L* 2.8 L Chloride 101 102 102 Carbon Dioxide 36.2 H 35.0 H 34.4 H BUN 19 16 16 Creatinine 0.8 0.8 0.7 Glucose 88 111 H 95 Calcium 10.3 9.7 9.2 Cardiac Enzymes 05/23/24 Range/Units 13:59 Troponin I 0.026 (0.0-0.045) ng/mL Liver Function 05/23/24 05/23/24 05/24/24 Range/Units 13:59 23:11 04:38 Total Bilirubin 1.0 1.1 (0.3-1.2) mg/dL AST 37 H 48 H (0-34) U/L ALT 31 30 (10-49) U/L Alkaline Phosphatase 75 68 (46-116) U/L Albumin 4.2 3.7 D 4.0 (3.4-4.8) gm/dL Urine 05/23/24 Range/Units 15:16 Urine Color Lt-Yellow (Lt Yel-Yel) Urine Clarity Clear (Clear/Hazy) Urine pH 7.0 (5.0-7.0) Ur Specific Dierks 1.022 (1.001-1.035) Urine Protein Trace (Neg - Trace) Urine Glucose (UA) Negative (Negative) Quality Measures Quality Measures none Advance care planning discussed with:: patient Medications Home Medications and Allergies Home Medications ?Medication ?Instructions ?Recorded ?Confirmed ?Type atorvastatin 40 mg tablet 40 mg PO QPM 05/25/20 12/24/23 History chlorthalidone 25 mg tablet 25 mg PO QDAY 12/24/23 12/24/23 History levothyroxine 150 mcg tablet 150 mcg PO QDAY 12/24/23 12/24/23 History ibuprofen 800 mg tablet 800 mg PO TID PRN Pain 05/24/24 05/24/24 History Allergies Allergy/AdvReac Type Severity Reaction Status Date / Time cortisone Allergy Mild Rash Verified 05/23/24 13:26 hydrocodone AdvReac Intermediate MAKES PT Verified 05/23/24 13:26 FEEL JITTERY,UNABLE TO SLEEP Visit Medications Acetaminophen (Acetaminophen 325 Mg Tablet) 650 mg PO Q6H PRN PRN Reason: Fever >101.5 or pain 1-3 Stop: 06/22/24 17:42 Hydrocodone Bitart/Acetaminophen (Hydrocodone/Apap 5/325 Tablet) 1 tab PO Q6HR PRN PRN Reason: Pain 4- 10 Stop: 05/28/24 21:00 Last Admin: 05/24/24 03:08 Dose: 1 tab Aspirin (Aspirin Ec 81 Mg Tabec) 81 mg PO QDAY [facility] Stop: 06/23/24 08:59 Last Admin: 05/24/24 09:29 Dose: 81 mg Atorvastatin Calcium (Atorvastatin Calcium 20 Mg Tablet) 80 mg PO QDAY [facility] Stop: 06/23/24 08:59 Last Admin: 05/24/24 10:22 Dose: 80 mg Enoxaparin Sodium (Enoxaparin Sod Inj 40 Mg/0.4 Ml Syringe) 40 mg SC QDAY [facility] Stop: 06/07/24 08:59 Last Admin: 05/24/24 09:29 Dose: 40 mg Gabapentin (Gabapentin 300 Mg Capsule) 300 mg PO BID [facility] Stop: 06/22/24 20:59 Last Admin: 05/24/24 09:30 Dose: 300 mg Potassium Chloride (Kcl Ivpb) 10 meq in 100 mls @ 100 mls/hr IV Q1H [facility] Stop: 05/24/24 12:59 Last Admin: 05/24/24 10:30 Dose: 100 mls/hr Levothyroxine Sodium 125 mcg/ (Levothyroxine Sodium 25 mcg) 150 mcg PO ACBR MATTHEW Stop: 06/23/24 05:59 Last Admin: 05/24/24 06:28 Dose: 150 mcg Ondansetron HCl (Ondansetron Inj 2 Mg/Ml Inj 2 Ml) 4 mg IV Q6H PRN; Protocol PRN Reason: NAUSEA OR VOMITING Stop: 06/22/24 17:42 Discontinued Medications Aspirin (Aspirin Ec 81 Mg Tabec) 81 mg PO X1 ONE Stop: 05/23/24 17:53 Last Admin: 05/23/24 18:27 Dose: 81 mg Atorvastatin Calcium (Atorvastatin Calcium 10 Mg Tablet) 80 mg PO QDAY [facility] Stop: 06/23/24 08:59 Last Admin: 05/24/24 10:22 Dose: Not Given Potassium Chloride (Kcl Ivpb) 10 meq in 100 mls @ 100 mls/hr IV Q1H [facility] Stop: 05/23/24 20:23 Last Infusion: 05/23/24 23:00 Dose: Infused Potassium Chloride (Kcl Ivpb) 10 meq in 100 mls @ 100 mls/hr IV Q1H [facility] Stop: 05/24/24 04:01 Last Infusion: 05/24/24 07:01 Dose: Infused Potassium Chloride (Kcl Ivpb) 10 meq in 100 mls @ 100 mls/hr IV Q1H [facility] Stop: 05/24/24 12:09 Last Admin: 05/24/24 09:34 Dose: Not Given Potassium Chloride (Potassium Chloride 20 Meq Tabcr) 40 meq PO X1 ONE Stop: 05/23/24 16:24 Last Admin: 05/23/24 18:26 Dose: 40 meq Potassium Chloride (Potassium Chloride 20 Meq Tabcr) 40 meq PO X1 ONE Stop: 05/24/24 00:02 Last Admin: 05/24/24 00:49 Dose: 40 meq Potassium Chloride (Potassium Chloride 20 Meq Tabcr) 40 meq PO X1 ONE Stop: 05/24/24 08:11 Last Admin: 05/24/24 09:34 Dose: Not Given Potassium Chloride (Potassium Chloride 20 Meq Tabcr) 20 meq PO X1 ONE Stop: 05/24/24 08:13 Last Admin: 05/24/24 09:33 Dose: 20 meq Assessment & Plan Plan 68-year-old male with PMH of HTN,HLD, hypothyridism, odteoarthritis,carpel tunnel who comes to [facility] on 05/23/2024 in for an evaluation of upper extremity and lower extremity weakness, since last thursday #Acute Stroke ruled out #Upper extremity bilateral weakness #Lower extremity bilateral weakness #Hx of CVA -Patienthad h/o stroke 35 years ago, takes aspirin as well at home -Head CT shows 8 mm age-indeterminate infarct -MRI -Negative for acute hemorrhage mass effect or midline shift,No acute infarct,Mild chronic microvascular white matter change, No cerebral large vessel occlusions -TSH-4.28 -Utox positive for marajuina -Continue Aspirin 81 -Continue Lipitor 80 -Blood pressure stable -Lipid pannel stable -pending echo and PT -Most likely the weakness is secondary to electrolyte imblance. continue to replete electrolyte . Case discussed with my attending Dr Alec Carrington MD,PGY-3 Attending Provider Attestation/Addendum I independently reviewed the patient chart and I agree with resident's findings, assessment and plan of care. His presenting symptom of significant weakness in both upper and lower extremities is secondary to hypokalemia and should resolve with repletion. Continue to monitor him closely for preventing further recurrence.
[2024-05-24 14:49] LABS: Anion Gap 6 (7-16); BUN/Creatinine Ratio 18 Ratio (12-20); Blood Urea Nitrogen 14 mg/dL (9-23); Calcium 9.5 mg/dL (8.3-10.6); Carbon Dioxide 34.3 mMol/L (20.0-31.0); Chloride 100 mMol/L (98-107); Creatinine (Component) 0.8 mg/dL (0.6-1.3); Estimated Creatinine Clearance 110.5 mL/min (>60); Glucose 102 mg/dL (74-106); Osmolality,Calculated 279 (275-295); Potassium 3.8 mMol/L (3.4-5.1); Sodium 140 mMol/L (136-145); eGFR > 60 See Note
[2024-05-24] MEDS: CELECOXIB 100 MG CAPSULE PO (18:18)
[2024-05-24 19:50] LABS: Albumin, Serum 4.4 gm/dL (3.4-4.8); Anion Gap 6 (7-16); BUN/Creatinine Ratio 20 Ratio (12-20); Blood Urea Nitrogen 16 mg/dL (9-23); Calcium 9.7 mg/dL (8.3-10.6); Calcium (Corrected) 9.7 mg/dL (8.5-10.1); Chloride 101 mMol/L (98-107); Creatinine (Component) 0.8 mg/dL (0.6-1.3); Estimated Creatinine Clearance 110.5 mL/min (>60); Glucose 138 mg/dL (74-106); Osmolality,Calculated 280 (275-295); Potassium 3.1 mMol/L (3.4-5.1); Sodium 139 mMol/L (136-145); eGFR > 60 See Note
[2024-05-24] MEDS: POTASSIUM CHL 10 mEq IVPB 10 MEQ/100 ML BAG 50 MEQ IV ×2 (21:29→23:50)
[2024-05-24] MEDS: SODIUM CHLORIDE 0.9% 500 ML 500 ML 80 ML IV (22:27)
[2024-05-24] MEDS: IBUPROFEN TAB 400 MG TABLET 800 MG PO (22:36)
[2024-05-25] VITALS: PULSE 57; PULSE 63; TEMP 36.1
[2024-05-25 03:42] VITALS: BP 108/62; PULSE 64; RESP 17; TEMP 36.2; O2SAT 96
[2024-05-25 04:00] VITALS: PULSE 56
[2024-05-25] MEDS: LEVOTHYROXINE SODIUM 125 MCG, LEVOTHYROXINE SODIUM 25 MCG 150 MCG PO (05:03)
[2024-05-25 06:08] LABS: Basophils # (Auto) 0.1 Thou/mm3 (0.0-0.2); Basophils % (Auto) 1 % (0-2.5); Eosinophils # (Auto) 0.4 Thou/mm3 (0.0-0.5); Eosinophils % (Auto) 5 % (0-10); Hematocrit 41.2 % (41.0-53.0); Hemoglobin 14.1 g/dL (13.5-16.0); Immature Granulocytes % (Auto) 1 % (0-0); Immature Granulocytes Auto 0.07 Thou/mm3 (0.00-0.00); Lymphocytes # (Auto) 1.1 Thou/mm3 (1.0-4.8); Lymphocytes % (Auto) 13 % (10-50); Mean Corpuscular HGB Conc 34.2 g/dl (31.0-37.0); Mean Corpuscular Hemoglobin 29.6 pg (25.0-35.0); Mean Corpuscular Volume 86 fL (80-100); Monocytes # (Auto) 0.7 Thou/mm3 (0.0-0.8); Monocytes % (Auto) 8 % (0-12); Neutrophils # (Auto) 5.9 Thou/mm3 (1.8-7.7); Neutrophils % (Auto) 72 % (37-80); Nucleated Red Blood Cell % 0 /100 WBC (0); Platelet Count 308 Thou/mm3 (140-440); RDW Standard Deviation 43.8 fL (35.1-43.9); Red Blood Count 4.77 Miln/mm3 (4.50-5.90); White Blood Count 8.3 Thou/mm3 (3.8-10.6)
[2024-05-25 06:19] LABS: Prothrombin Time 11.4 Seconds (9.0-12.2)
[2024-05-25] MEDS: IBUPROFEN TAB 400 MG TABLET 800 MG PO (06:36)
[2024-05-25 06:38] LABS: Alanine Aminotransferase 33 U/L (10-49); Albumin, Serum 4.2 gm/dL (3.4-4.8); Albumin/Globulin Ratio 2.1 (1.2-2.2); Alkaline Phosphatase 71 U/L (46-116); Anion Gap 7 (7-16); Aspartate Amino Transferase 59 U/L (0-34); BUN/Creatinine Ratio 18 Ratio (12-20); Bilirubin,Total 1.2 mg/dL (0.3-1.2); Blood Urea Nitrogen 14 mg/dL (9-23); Calcium 9.3 mg/dL (8.3-10.6); Calcium (Corrected) 9.3 mg/dL (8.5-10.1); Carbon Dioxide 30.2 mMol/L (20.0-31.0); Chloride 103 mMol/L (98-107); Creatinine (Component) 0.8 mg/dL (0.6-1.3); Estimated Creatinine Clearance 151.6 mL/min (>60); Glucose 91 mg/dL (74-106); Magnesium 1.8 mg/dL (1.6-2.6); Osmolality,Calculated 279 (275-295); Phosphorous 3.2 mg/dL (2.4-5.1); Potassium 3.5 mMol/L (3.4-5.1); Sodium 140 mMol/L (136-145); Total Protein 6.2 gm/dL (5.7-8.2); eGFR > 60 See Note
--- NOTE | 2024-05-25 07:53 | EKG_ITS ---
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
[2024-05-25 08:00] VITALS: BP 106/70; PULSE 60; PULSE 64; RESP 16; TEMP 35.9; O2SAT 94
--- NOTE | 2024-05-25 08:32 | PD.RESPRO ---
Documentation for date of: 05/25/24 Subjective Subjective Interval history: Patient was examined bedside this morning,No acute overnight events. Exam Vital Signs Temp Pulse Resp BP Pulse Ox O2 Del Method O2 Flow Rate 96.6 F L 60 16 106/70 94 L Room Air 2 05/25/24 08:00 05/25/24 08:00 05/25/24 08:00 05/25/24 08:00 05/25/24 08:00 05/25/24 08:00 05/24/24 02:43 Narrative Exam GENERAL: Comfortable adult seen resting comfortably in hospital bed, no acute distress VITALS: All vitals were reviewed and the pulse ox is 98% on room air HEENT: Normocephalic, atraumatic. Pupils are equal and reactive. Oral mucosa is moist. NECK: Supple, nontender, no JVD CHEST: Symmetrical, atraumatic and with equal expansion ,Nontender on palpation CARDIOVASCULAR: Heart regular rhythm & rate. S1/S2. no murmur or gallop rub or extra beats. LUNGS: Clear to auscultation bilaterally with symmetrical chest rise. No laboring tachypnea or wheezing. No intercostal subcostal retraction. No rales and no rhonchi. ABDOMEN: Soft, flat, nontender to palpation, no guarding or rebound tenderness. Active and normal bowel sounds. EXTREMITIES:Moves all 4 extremities,No B/L LE edema. SKIN: Warm and dry, no jaundice , readness in b/l legs NEURO: Patient is AO x 3, Cranial nerves II through XII grossly intact. There is no focal neurologic deficits noted. PSYCHIATRIC: Patient is in normal mood, cooperative, no SI or HI or hallucinations. Objective Labs 05/25/24 04:47 05/25/24 04:47 Labs: Laboratory Results - last 24 hr 05/24/24 05/24/24 05/25/24 14:05 19:09 04:47 WBC 8.3 RBC 4.77 Hgb 14.1 Hct 41.2 MCV 86 MCH 29.6 MCHC 34.2 RDW Std Deviation 43.8 Plt Count 308 D Neut % (Auto) 72 Lymph % (Auto) 13 Glynn % (Auto) 8 Eos % (Auto) 5 Baso % (Auto) 1 Neut # (Auto) 5.9 Lymph # (Auto) 1.1 Glynn # (Auto) 0.7 Eos # (Auto) 0.4 Baso # (Auto) 0.1 Immature Gran # (Auto) 0.07 H Absolute Nucleated RBC 0.00 Immature Gran % 1 H Nucleated RBC % 0 PT 11.4 INR 1.0 Sodium 140 139 140 Potassium 3.8 D 3.1 L D 3.5 Chloride 100 101 103 Carbon Dioxide 34.3 H 32.0 H 30.2 Anion Gap 6 L 6 L 7 BUN 14 16 14 Creatinine 0.8 0.8 0.8 Estim Creat Clear Calc 110.5 110.5 151.6 eGFR > 60 > 60 > 60 BUN/Creatinine Ratio 18 20 18 Glucose 102 138 H 91 Calculated Osmolality 279 280 279 Calcium 9.5 9.7 9.3 Corrected Calcium 9.7 9.3 Phosphorus 3.0 3.2 Magnesium 1.8 Total Bilirubin 1.2 AST 59 H ALT 33 Alkaline Phosphatase 71 Total Protein 6.2 Albumin 4.4 4.2 Globulin 2.0 L Albumin/Globulin Ratio 2.1 Quality Measures Quality Measures none Advance care planning discussed with:: patient Assessment & Plan Assessment Current Active Medications: Generic Name Dose Route Start Last Admin Trade Name Freq PRN Reason Stop Dose Admin Acetaminophen 650 mg 05/23/24 17:43 Acetaminophen 325 Mg Tablet PO 06/22/24 17:42 Q6H PRN Fever >101.5 or pain 1-3 Aspirin 81 mg 05/24/24 09:00 05/24/24 09:29 Aspirin Ec 81 Mg Tabec PO 06/23/24 08:59 81 mg QDAY MATTHEW Administration Atorvastatin Calcium 80 mg 05/24/24 09:00 05/24/24 10:22 Atorvastatin Calcium 20 Mg Tablet PO 06/23/24 08:59 80 mg QDAY MATTHEW Administration Enoxaparin Sodium 40 mg 05/24/24 09:00 05/24/24 09:29 Enoxaparin Sod Inj 40 Mg/0.4 Ml Syringe SC 06/07/24 08:59 40 mg QDAY MATTHEW Administration Gabapentin 300 mg 05/23/24 21:00 05/24/24 21:27 Gabapentin 300 Mg Capsule PO 06/22/24 20:59 300 mg BID MATTHEW Administration Ibuprofen 800 mg 05/24/24 21:31 05/25/24 06:36 Ibuprofen Tab 400 Mg Tablet PO 06/23/24 21:59 800 mg TID PRN Administration Pain 4-10 Levothyroxine Sodium 125 mcg/ 150 mcg 05/24/24 06:00 05/25/24 05:03 Levothyroxine Sodium 25 mcg PO 06/23/24 05:59 150 mcg ACBR MATTHEW Administration Ondansetron HCl 4 mg 05/23/24 17:43 Ondansetron Inj 2 Mg/Ml Inj 2 Ml IV 06/22/24 17:42 Q6H PRN NAUSEA OR VOMITING Protocol Plan 68-year-old male with PMH of HTN,HLD, hypothyridism, odteoarthritis,carpel tunnel who comes to [facility] on 05/23/2024 in for an evaluation of upper extremity and lower extremity weakness, since last thursday #Acute Stroke ruled out #Upper extremity bilateral weakness #Lower extremity bilateral weakness #Hx of CVA -Patienthad h/o stroke 35 years ago, takes aspirin as well at home -Head CT shows 8 mm age-indeterminate infarct -MRI -Negative for acute hemorrhage mass effect or midline shift,No acute infarct,Mild chronic microvascular white matter change, No cerebral large vessel occlusions -TSH-4.28 -Utox positive for marajuina -Continue Aspirin 81 -Continue Lipitor 80 -Blood pressure stable -Lipid pannel stable -pending echo and PT -Most likely the weakness is secondary to electrolyte imblance. continue to replete electrolyte . his potassium today is 3.5 Case discussed with my attending Dr Alec Carrington MD,PGY-3 Attending Provider Attestation/Addendum I personally have seen and examined the patient at the bedside and agree with resident findings, assessment and plan of care. Reassurance given to the patient regarding the negative workup. Neurologically stable on current management.
[2024-05-25] MEDS: ATORVASTATIN CALCIUM 20 MG TABLET 80 MG PO (08:58)
[2024-05-25] MEDS: GABAPENTIN 300 MG CAPSULE PO (08:58)
--- NOTE | 2024-05-25 09:18 | PC.SS ---
Follow up note: DC home today waiting for PT recommendations.
--- NOTE | 2024-05-25 09:58 | PCS.ST ---
No formal Speech services are warranted. No dysphagia. Baseline cognitive/communication skills.
--- NOTE | 2024-05-25 13:40 | ESDS_ITS ---
<Statement entered by Loren Mcduffie MD - 05/26/24 12:58> Patient was seen and examined at bedside. Patient was uncooperative and he requested to have discharge paper as soon as possible. Patient denied any residual weakness, MRI came back negative for any stroke. And the most likely reason for his generalized weakness was severe hypokalemia. Medical reconciliation was done and we will DC the patient furosemide and chlorthalidone and to follow-up with his primary care physician for further recommendations. During his stay we did not notice any signs or symptoms of heart failure. Patient was clinically stable for discharge - Patient's plan and care discussed with my attending, Dr. Stephane Mcduffie MD Internal Medicine PGY-2 Planned Discharge Date 05/25/24 DS: Providers Provider Date of admission: 05/23/24 17:53 Primary care physician: Jai Negron([facility])[place] Admitting Provider: Lorenzo Reece MD Attending Provider on Admission: Lorenzo Reece MD Consults: 05/23/24 18:19 Consult to Neurology / Tele-Neurology Routine Comment: stroke r/o Consulting Provider: Main Michael 05/24/24 08:56 Referral Physical Therapy Routine Comment: Physician Instructions: Attending Provider on DC: Dennis Calderón MD Discharging Provider: Dennis Calderón MD DS: Diagnosis Problem List Completed Was Problem List Reviewed/Reconciled?: Yes Hospital Course Hospital Course Hospital course: 68-year-old male past medical history of hypertension, hyperlipidemia, and hypothyroidism who was admitted on 05/23/2024for stroke ruleout and bilat UE and LE weakness. Pt had come in for UE and LE weakness which was not focal, but had endorsed a possible hx of a CVA about 35 years ago but does not take any A/C. Pt came to the ED with temperature of 98, heart rate of 58, respiratory of 18, blood pressure 144/77, oxygen saturation of 96. He was worked up and was found to have a potassium of 2.3, corrected calcium 10.3, hemoglobin 13.9, troponin negative x 1, UA of 18 WBC. EKG showed sinus bradycardia right bundle branch block, however right bundle branch block seen on previous EKGs. Head CT show age indeterminate infarct about the size of 6mm in the L basal ganglia. Patient was given oral and IV potassium 40 mill equivalents each. Medicine was consulted for further evaluation of stroke rule out and hypokalemia. While on the floors, evaluation for his weakness was done. He was given ASA 81 and Lipitor 80. With replenishment of his potassium, his symptoms of weakness had improved. Neurology was consulted w/ recommendations for MR stroke protocol which was done. MRI of brain showed no acute infarct, hemorrhage, mass effect or occlusions. Echo was also done for patient with recommendations to follow-up outpatient as MRI showed no stroke. At this point, most likely cause of nonfocal bilat UE and LE was hypokalemia secondary due to medication use which includes chlorthalidone and Lasix. Patient will need to caution taking these 2 medicines we will defer to PCP to adjust dosage and if discontinuation needs to be done. We recommend him to avoid using this at this time and to have PCP to make determination of next steps with those medicines. Follow up with your PCP within one week from discharge Follow up with the neurologist Dr Roberts within 2 weeks from discharge Avoid using Lasix and Chlorothalidon as it a reason to have very low potassium Follow up for the PCP for medication adjustment In case of an emergency please return to the ED as soon as possible #Acute Stroke, ruled out #Upper extremity bilateral weakness, resolved #Lower extremity bilateral weakness, resolved #Hx of CVA #Hypokalemia, resolved #Symptomatic hypokalemia, resolved #History of hypothyroidism #History of hypertension #History of hyperlipidemia Patient seen and care discussed with my senior resident, Dr. Mcduffie , and my attending physician, Dr. Stephane Barkley, PGY-1 Time Spent with Patient Time attestation: Total time spent providing and/or coordinating discharge services: Time spent: Greater than 30 minutes Exam Vital Signs Temp Pulse Resp BP Pulse Ox O2 Del Method O2 Flow Rate 96.6 F L 60 16 106/70 94 L Room Air 2 05/25/24 08:00 05/25/24 08:00 05/25/24 08:00 05/25/24 08:00 05/25/24 08:00 05/25/24 08:00 05/24/24 02:43 Narrative Exam General: AAOx3, NAD, obese, pleasant male, requesting to leave HEENT: Moist mucous membranes, conjunctiva clear, EOMI, PERRLA, Cardiovascular: S1, S2, radial pulses +2 bilat, RRR Pulmonary: CTAB bilat no cough, no wheezing GI: No tenderness to light or deep palpitation, no guarding, rigidity, rebound tenderness or distension Extremities: No presence of trace or pitting edema in lower extremities bilaterally, dorsalis pedis pulses +2 bilaterally Skin: Some venous stasis in LE bilat Neuro: AAOx3, no focal sensory deficits, no nystagmus, no facial droop, no resting tremor, Psych: Cooperative Discharge Plan Plan Patient Disposition: HOME (Self Care) Disposition Comment: Stable for admit Patient condition on transfer: Benefits outweigh risks Care Plan Goals: Follow up with your PCP within one week from discharge Follow up with the neurologist Dr Roberts within 2 weeks from discharge Avoid using Lasix and Chlorothalidon as it a reason to have very low potassium Follow up for the PCP for medication adjustment In case of an emergency please return to the ED as soon as possible Prescriptions/Referrals Prescriptions/Med Rec: Continued atorvastatin 40 mg Tablet 40 mg PO QPM ibuprofen 800 mg tablet 800 mg PO TID PRN (Reason: Pain) Patient Comments: TAKE 1 TABLET BY MOUTH EVERY 8 HOURS NEEDED WITH FOOD furosemide 40 mg tablet 40 mg PO DAILY Patient Comments: TAKE 1 TABLET BY MOUTH ONCE DAILY gabapentin 300 mg capsule 300 mg PO BID PRN (Reason: Pain) Patient Comments: TAKE 1 CAPSULE BY MOUTH TWICE DAILY NEEDED levothyroxine 150 mcg Tablet 150 mcg PO QDAY Discontinued chlorthalidone 25 mg Tablet 25 mg PO QDAY Referrals: Jamil([facility]),[place] Vergara [Primary Care Provider] - Patient/Caregiver Discharge Instructions Education Materials: Discharge Instructions for ..., ED Weakness (Uncertain Cause) Print Language: Arabic Stand Alone Forms: Mariah Award Info., Patient Portal Info Letter Discharge Order Discharge Orders: Discharge (Routine); Ordered 05/25/24 Ordered By: Loren Mcduffie Quality Discharge Quality Measures VTE prophylaxis (Lovenox ) Attestestation MD Attestation I have examined the patient, reviewed labs and imaging findings, discussed the case with the resident(s), and reviewed entered orders. I agree with the plan of care as outlined in this note. Dr. Calderón
== END 2024-05-25 11:00 | disposition home or self-care (01) | DRG 641 ==
LOC: SERX 17:31 → SERHOLD 18:10 → S2NX 05-24 20:58
PROVIDERS: Nurse Practitioner Primary Care; Student in an Organized Health Care Education/Training Program; Admitting Provider Internal Medicine; Emergency Provider Emergency Medicine; PCP Nurse Practitioner Family; Visit Provider Psychiatry & Neurology Neurology
DX: E87.6 Hypokalemia (principal); T50.1X5A Adverse effect of loop [high-ceiling] diuretics, initial encounter; T50.2X5A Adverse effect of carbonic-anhydrase inhibitors, benzothiadiazides and other diuretics, initial encounter; E03.9 Hypothyroidism, unspecified; E78.5 Hyperlipidemia, unspecified; I10 Essential (primary) hypertension; F12.90 Cannabis use, unspecified, uncomplicated; I45.10 Unspecified right bundle-branch block; Z87.891 Personal history of nicotine dependence; Z86.73 Personal history of transient ischemic attack (TIA), and cerebral infarction without residual deficits; Z90.49 Acquired absence of other specified parts of digestive tract; Z96.652 Presence of left artificial knee joint; Z79.899 Other long term (current) drug therapy; Z79.890 Hormone replacement therapy
CPT/HCPCS: 36415; 70450; 70544; 80048; 80053; 80061; 80069; 80307; 81001; 83735; 83880; 84100; 84443; 84484; 85025; 85610; 85730; 93005; 93306; 96365; 96367; 97162; 99291; J1650; J3480; J7040; A9270

== ENCOUNTER → 2024-05-26 | Outpatient (CLI) | payer MEDICARE, SELFPAY ==
--- NOTE | 2024-05-26 10:18 | XR_ITS ---
Examination: Knee, left , 3 views Technique: Knee AP, lateral, oblique 3 views Date and time of exam: May 26, 2024 1101 hours INDICATIONS: Status post left knee arthroplasty December 2023 FINDINGS: Total left knee arthroplasty. Satisfactory alignment. No loosening of the prosthetic components Small knee effusion No fracture IMPRESSION: Total left knee arthroplasty with satisfactory alignment
== END | disposition home or self-care (01) ==
PROVIDERS: PCP Family Medicine; Referring Provider Orthopaedic Surgery; Visit Provider Orthopaedic Surgery
DX: M25.562 Pain in left knee (principal); Z96.652 Presence of left artificial knee joint
CPT/HCPCS: 73562

== ENCOUNTER → 2024-06-13 | Outpatient (CLI) | payer MEDICARE, SELFPAY ==
[2024-06-13 10:49] LABS: Albumin, Serum 4.5 gm/dL (3.4-4.8); Anion Gap 7 (7-16); BUN/Creatinine Ratio 23 Ratio (12-20); Blood Urea Nitrogen 18 mg/dL (9-23); Calcium 9.4 mg/dL (8.3-10.6); Calcium (Corrected) 9.4 mg/dL (8.5-10.1); Carbon Dioxide 28.2 mMol/L (20.0-31.0); Chloride 107 mMol/L (98-107); Creatinine (Component) 0.8 mg/dL (0.6-1.3); Glucose 99 mg/dL (74-106); Osmolality,Calculated 285 (275-295); Phosphorous 2.9 mg/dL (2.4-5.1); Potassium 4.3 mMol/L (3.4-5.1); Sodium 142 mMol/L (136-145); eGFR > 60 See Note
== END | disposition home or self-care (01) ==
LOC: COPL 09:21
PROVIDERS: PCP Family Medicine; Referring Provider Specialist; Visit Provider Specialist
DX: I10 Essential (primary) hypertension (principal)
CPT/HCPCS: 36415; 80069

== ENCOUNTER 2024-06-24 11:05 | Emergency (ER) | payer MEDICARE, SELFPAY ==
--- NOTE | 2024-06-24 11:15 | XR_ITS ---
Examination: CT brain head without contrast. 2-D sagittal coronal reconstructions Date and time of exam:June 24, 2024 1123 hours INDICATIONS: Patient fell today with injury to the head, laceration to the head and head pain CTDI: vol (mGy):56.2 DLP: (mGycm):1297 Technique: Multiple CT axial sections of the brain have been obtained, 5 mm slice thickness. Contrast has not been administered. 2-D sagittal, coronal reconstructions have been obtained Low dose protocols were performed. One or more of the following dose reduction techniques were used; automated exposure control, adjustment of the mA and/or KV according to patient size, use of iterative reconstruction technique. Findings: No significant ventricular enlargement. Intra-axial or extra-axial hemorrhage density is not seen. No mass effect or midline shift Basal cisterns are not remarkable. Fourth ventricle is midline. Cranial vault intact. Impression: Negative for acute hemorrhage, mass effect or midline shift
[2024-06-24 11:16] VITALS: BP 145/90; PULSE 77; RESP 18; TEMP 36.7; O2SAT 99; BMI 41.8
--- NOTE | 2024-06-24 11:37 | EDNOTE_ITS ---
<Statement entered by Ines Sesay MD - 06/25/24 09:16> As co-signing physician, I was present and available for consult prn. I concur with the plan and care as documented by the midlevel provider. ED Head Injury RME/HPI General Chief complaint: Head Injury Stated complaint: FALL, HIT METAL STAKE WITH FACE, ACTIVE BLEEDING Time Seen by Provider: 06/24/24 11:15 Arrival date/time: 06/24/24 11:05 68-year-old male presents the emergency department today stating that he fell forward while sitting on a stool today patient obtained a laceration to his face patient denies any headache dizziness or weakness patient reports no loss of consciousness or vomiting Limitations: no limitations Related Data Home Medications ?Medication ?Instructions ?Recorded ?Confirmed atorvastatin 40 mg tablet 40 mg PO QPM 05/25/20 05/25/24 levothyroxine 150 mcg tablet 150 mcg PO QDAY 12/24/23 05/25/24 ibuprofen 800 mg tablet 800 mg PO TID PRN Pain 05/24/24 05/24/24 furosemide 40 mg tablet 40 mg PO DAILY 05/25/24 05/25/24 gabapentin 300 mg capsule 300 mg PO BID PRN Pain 05/25/24 05/25/24 Allergies Allergy/AdvReac Type Severity Reaction Status Date / Time cortisone Allergy Severe Rash Verified 06/24/24 11:07 hydrocodone AdvReac Severe MAKES PT Verified 06/24/24 11:07 FEEL JITTERY,UNABLE TO SLEEP Review of Systems Review of Systems Systems Reviewed: All systems reviewed, normal except as documented Constitutional Constitutional: Reports system reviewed and no additional complaints, except as documented, Denies fever(s) and Denies headache(s) Eyes Eyes: Reports system reviewed and no additional complaints, except as documented and Denies blurry vision ENT Ears, Nose, Mouth, and Throat: Reports system reviewed and no additional complaints, except as documented, Denies headache(s), Denies nasal congestion and Denies nasal discharge Cardiovascular Cardiovascular: Reports system reviewed and no additional complaints, except as documented, Denies chest pain and Denies dyspnea Respiratory Respiratory: Reports system reviewed and no additional complaints, except as documented, Denies chest congestion, Denies cough and Denies dyspnea Gastrointestinal Gastrointestinal: Reports system reviewed and no additional complaints, except as documented and Denies abdominal pain Integumentary/Breasts Skin/Breast: Reports system reviewed and no additional complaints, except as documented, Denies rash and Reports wounds (Laceration facial 4 cm) Neurologic Neurologic: Reports system reviewed and no additional complaints, except as documented, Reports as per HPI and Denies headache(s) Past Medical History Past Medical History NEUROLOGIC: Negative Neurological Disorders CARDIAC: Negative Cardiac Disorders ED Exam General Limitations: Present no limitations General appearance: Present alert and in no apparent distress Expanded Head Exam Head image: 2 1. 4 cm laceration Eye Eye exam: Present normal appearance, PERRL and EOMI; Absent conjunctival injection ENT ENT exam: Present normal exam, normal oropharynx and mucous membranes moist Neck Neck exam: Present normal inspection, full ROM and trachea midline; Absent tenderness Chest Chest inspection: Present normal inspection and symmetric chest wall rise; Absent tenderness Respiratory Respiratory exam: Present normal lung sounds bilaterally; Absent respiratory distress Cardiovascular Cardiovascular exam: Present regular rate, normal rhythm and normal heart sounds Abdominal Exam Abdominal exam: Present soft and normal bowel sounds Extremities Exam Extremities exam: Present normal inspection and full ROM Back Exam Back exam: Present normal inspection and full ROM Neurological Exam Neurological exam: Present alert, oriented X3 and CN II-XII intact Psychiatric Psychiatric exam: Present normal affect and normal mood Skin Skin exam: Present warm, dry, intact and normal color Course Quality Measures none Orders Category Date Time Status Set Up Suture Tray STAT Care 06/24/24 11:15 Completed Wound Care NOW Care 06/24/24 11:[address] head/brain wo con Stat Exams 06/24/24 11:15 Completed Lidocaine 1% 20 ml [Xylocaine 1% 20 ML] Med 06/24/24 11:15 Discontinued 20 ml INFL X1 ONE Vital Signs Vital signs: Vital Signs Temperature 98.1 F 06/24/24 11:16 Pulse Rate 77 06/24/24 11:16 Respiratory Rate 18 06/24/24 11:16 Blood Pressure 145/90 H 06/24/24 11:16 Pulse Oximetry (%) 99 06/24/24 11:16 Oxygen Delivery Method Room Air 06/24/24 11:16 O2 saturation 99% r.a wnl Procedures -ED Laceration Laceration 1: Site: face Side (If applicable): right Size (cm): 4 Description: linear Depth: simple, single layer Local Anesthetic: lidocaine 1% Amount of anesthesia used (mL): 5 Pre-repair: wound explored and irrigated extensively Skin layer closed with: nylon Size (cm): 4-0 Number of sutures: 4 Technique: simple, interrupted Head Injury MDM Narrative MDM Narrative:: 68-year-old male presents the emergency department today stating that he fell forward while sitting on a stool today patient obtained a laceration to his face patient denies any headache dizziness or weakness patient reports no loss of consciousness or vomiting On exam patient well-appearing patient does not appear ill or toxic patient walks with steady gait has no abnormal neurological findings As patient reports he takes ibuprofen daily and hit his head and is [address] scan of the head obtained CT Per my interpretation does not confirm any acute abnormalities no intracranial hemorrhage midline shift or ovarian fracture this was confirmed by radiologist Sutures applied to the laceration above the right eyebrow wound is well- approximated with no active bleeding at time of discharge Patient instructed to have sutures removed in 7 to 10 days for worsening symptoms or concerns or return to the ER medially for further evaluation. Patient data External records reviewed:: [facility] previous records Clinical information provided by:: patient Social determinants that could affect healthcare access:: none Patient has the following chronic illnesses:: none How is presenting disease/condition affected by chronic disease/condition?: no chronic disease Evaluation data The following diagnostics were reviewed and interpreted by me:: radiology exam(s) Lab and/or radiology exams considered but not ordered:: Radiology obtain Interpretation Summary: Reviewed by me Medications / Prescriptions Medications or Prescriptions considered but not ordered:: given Medication administrations:: Medication Administration History Discontinued Medications Lidocaine HCl (Lidocaine Hcl 1% 20 Ml Vial) 20 ml INFL X1 ONE Stop: 06/24/24 11:16 Last Admin: 06/24/24 12:12 Dose: 20 ml Documented By: given Consultations Consultation(s) initiated? (list below): No Diagnosis Differential diagnosis head injury: concussion without loss of consciousness, epidural hematoma, closed head injury, subarachnoid hematoma, postconcussion syndrome, subdural hematoma and concussion with loss of consciousness Most likely diagnosis given after review of the tests above:: Close head injury, laceration Admission Indicated Admission indicated?: not indicated Admission Request Was there a request for admission?: No Disposition Plan Disposition Plan: Discharge Discharge Attestation Discharge Attestation: The patient and all family members were given an opportunity to ask questions and understood the discharge instructions. Discharge instructions specifically effects, indications for sooner follow up or return to the emergency department, and the expected course of current diagnosis. Patient condition: Stable Discharge Plan Plan Patient Disposition: HOME (Self Care) Disposition Comment: Stable Prescriptions/Referrals Prescriptions/Med Rec: No Action atorvastatin 40 mg Tablet 40 mg PO QPM ibuprofen 800 mg tablet 800 mg PO TID PRN (Reason: Pain) Patient Comments: TAKE 1 TABLET BY MOUTH EVERY 8 HOURS NEEDED WITH FOOD furosemide 40 mg tablet 40 mg PO DAILY Patient Comments: TAKE 1 TABLET BY MOUTH ONCE DAILY gabapentin 300 mg capsule 300 mg PO BID PRN (Reason: Pain) Patient Comments: TAKE 1 CAPSULE BY MOUTH TWICE DAILY NEEDED levothyroxine 150 mcg Tablet 150 mcg PO QDAY Problem List Clinical Impression: Facial laceration Patient/Caregiver Discharge Instructions Education Materials: ED Head Injury (Adult) Additional Instructions: Please follow up with your primary care doctor in the next 24-48hrs for any worsening symptoms return here immediately Please have sutures removed in 7 to 10 days Print Language: Sami Stand Alone Forms: Mariah Award Info., Patient Portal Info Letter PA/CYNTHIA Supervising Physician PA/CYNTHIA Supervising Physician: Dr. SESAY
[2024-06-24] MEDS: LIDOCAINE HCL 1% 20 ML VIAL INFL (12:12)
--- NOTE | 2024-06-24 12:25 | PC.NURSE ---
lidocaine given by provider prior to sutures
== END 2024-06-24 12:25 | disposition home or self-care (01) ==
LOC: SERX 12:20
PROVIDERS: Emergency Provider Emergency Medicine
DX: S01.81XA Laceration without foreign body of other part of head, initial encounter (principal); W19.XXXA Unspecified fall, initial encounter
CPT/HCPCS: 12013; 70450; 99284; J3490

== ENCOUNTER → 2024-07-18 | Outpatient (CLI) | payer MEDICARE, SELFPAY ==
[2024-07-18 10:30] LABS: Anion Gap 5 (7-16); BUN/Creatinine Ratio 26 Ratio (12-20); Blood Urea Nitrogen 23 mg/dL (9-23); Calcium 9.4 mg/dL (8.3-10.6); Carbon Dioxide 28.9 mMol/L (20.0-31.0); Chloride 111 mMol/L (98-107); Creatinine (Component) 0.9 mg/dL (0.6-1.3); Glucose 108 mg/dL (74-106); Osmolality,Calculated 293 (275-295); Potassium 4.7 mMol/L (3.4-5.1); Sodium 145 mMol/L (136-145); eGFR > 60 See Note
[2024-07-18 10:33] LABS: B-Type Natriuretic Peptide 53 pg/mL (0-100)
== END | disposition home or self-care (01) ==
LOC: COPL 09:43
PROVIDERS: PCP Family Medicine; Referring Provider Specialist; Visit Provider Specialist
DX: I50.32 Chronic diastolic (congestive) heart failure (principal); R60.0 Localized edema
CPT/HCPCS: 36415; 80048; 83880

== ENCOUNTER → 2024-10-25 | Outpatient (CLI) | payer MEDICARE, SELFPAY ==
[2024-10-25 10:31] LABS: B-Type Natriuretic Peptide 60 pg/mL (0-100)
[2024-10-25 10:42] LABS: Anion Gap 6 (7-16); BUN/Creatinine Ratio 20 Ratio (12-20); Blood Urea Nitrogen 18 mg/dL (9-23); Calcium 8.6 mg/dL (8.3-10.6); Carbon Dioxide 28.1 mMol/L (20.0-31.0); Chloride 109 mMol/L (98-107); Creatinine (Component) 0.9 mg/dL (0.6-1.3); Glucose 113 mg/dL (74-106); Osmolality,Calculated 287 (275-295); Potassium 3.9 mMol/L (3.4-5.1); Sodium 143 mMol/L (136-145); eGFR > 60 See Note
== END | disposition home or self-care (01) ==
LOC: COPL 09:15
PROVIDERS: PCP Family Medicine; Referring Provider Specialist; Visit Provider Specialist
DX: I50.23 Acute on chronic systolic (congestive) heart failure (principal); R60.0 Localized edema
CPT/HCPCS: 36415; 80048; 83880

== ENCOUNTER → 2025-01-23 | Outpatient (CLI) | payer MEDICARE, SELFPAY ==
[2025-01-23 10:18] LABS: Albumin, Serum 4.4 gm/dL (3.4-4.8); Anion Gap 9 (7-16); BUN/Creatinine Ratio 25 Ratio (12-20); Blood Urea Nitrogen 20 mg/dL (9-23); Calcium 9.5 mg/dL (8.3-10.6); Calcium (Corrected) 9.5 mg/dL (8.5-10.1); Carbon Dioxide 25.6 mMol/L (20.0-31.0); Chloride 108 mMol/L (98-107); Creatinine (Component) 0.8 mg/dL (0.6-1.3); Glucose 104 mg/dL (74-106); Osmolality,Calculated 287 (275-295); Phosphorous 2.4 mg/dL (2.4-5.1); Potassium 4.2 mMol/L (3.4-5.1); Sodium 143 mMol/L (136-145); eGFR > 60 See Note
[2025-01-23 10:23] LABS: B-Type Natriuretic Peptide 70 pg/mL (0-100)
== END | disposition home or self-care (01) ==
PROVIDERS: PCP Family Medicine; Referring Provider Specialist; Visit Provider Specialist
DX: I11.0 Hypertensive heart disease with heart failure (principal); I50.23 Acute on chronic systolic (congestive) heart failure; R60.0 Localized edema
CPT/HCPCS: 36415; 80069; 83880

== ENCOUNTER → 2025-03-21 | Outpatient (CLI) | payer MEDICARE, SELFPAY ==
--- NOTE | 2025-03-21 09:52 | XR_ITS ---
Examination: Fingers, right hand fourth digit 3 views Technique: AP, oblique, lateral views right hand and fourth digit. Exam date and time: March 21, 2025, 0955 hours FINDINGS: Old fracture deformities distal second and third metacarpals No acute fracture Minimal osteoarthritis IMPRESSION: No acute fracture
[2025-03-21 11:33] LABS: Sed Rate (ESR) 1 mm/hr (0-20)
[2025-03-21 11:42] LABS: C-Reactive Protein < 0.5 mg/dL (0.0-0.9)
== END | disposition home or self-care (01) ==
LOC: CDIM 09:48 → COPL 10:07
PROVIDERS: PCP Student in an Organized Health Care Education/Training Program; Referring Provider Student in an Organized Health Care Education/Training Program; Visit Provider Radiology Diagnostic Radiology
DX: M79.641 Pain in right hand (principal)
CPT/HCPCS: 36415; 73140; 85652; 86140